=== PATIENT | female | born 1950 | race African-American/Black ===

== ENCOUNTER 2017-09-10 13:29 | Inpatient (IN) | payer MEDICAID, OTHER ==
[~2017-09-10] VITALS: Ht 170.2 cm; Wt 83.9 kg
[~2017-09-10 13:29] MED LIST: ACET-2080 PO; CLON0.2T PO; COUGH SYRUP; DIPH25CA85 PO; HYDR25TA PO; OXCA300T PO; QUET200XR PO; RISP2 PO; STOOL SOFTNER
[2017-09-10] MEDS ORDERED: HALOPERIDOL LACTATE 5 MG/ML VIAL IM ONE (16:15)
[2017-09-10] MEDS ORDERED: LORazepam 2 MG/ML VIAL IM ONE (16:15)
[2017-09-10] MEDS ORDERED: ZOLPIDEM TARTRATE 10 MG TABLET PO PRN (18:15)
[2017-09-10] MEDS ORDERED: HALOPERIDOL 5 MG TABLET PO PRN (18:15)
[2017-09-10 18:42] LABS: BASOPHILS % (AUTO) 0.6 % (0.0-2.0); EOSINOPHILS % (AUTO) 3.3 % (1.0-6.0); HEMATOCRIT 36.7 % (36-46); HEMOGLOBIN 12.3 g/dL (12.0-16.0); LYMPHOCYTES # (AUTO) 1.9 K/uL (1.0-4.8); LYMPHOCYTES % (AUTO) 36.6 % (22.0-44.0); MEAN CORPUSCULAR HEMOGLOBIN 30.3 pg (26.0-34.0); MEAN CORPUSCULAR HGB CONC 33.4 G/dL (31.0-37.0); MEAN CORPUSCULAR VOLUME 91 fL (80-100); MONOCYTES # (AUTO) 0.8 K/uL (0.1-1.0); NEUTROPHILS # (AUTO) 2.3 K/uL (1.8-7.7); NEUTROPHILS % (AUTO) 43.5 % (40.0-70.0); PLATELET COUNT (AUTO) 307 K/uL (150-450); RED BLOOD CELL COUNT(AUTO) 4.05 MIL/uL (4.00-5.20); RED CELL DISTRIBUTION WIDTH 13.9 % (11.5-14.5)
[2017-09-10 18:53] LABS: ANION GAP 12 mmol/L (8-16); CALCIUM, TOTAL 10.2 mg/dL (8.8-10.5); CARBON DIOXIDE 25 mmol/L (22-29); CHLORIDE 106 mmol/L (98-107); CREATININE 0.86 mg/dL (0.60-1.30); GLOMERULAR FILTR. RATE CALC > 60 mL/min (>60); GLUCOSE,RANDOM 78 mg/dL (70-110); POTASSIUM 3.1 mmol/L (3.5-5.1); SODIUM SERUM 143 mmol/L (136-145); UREA NITROGEN, BLOOD 26 mg/dL (7-18)
[2017-09-10 18:59] LABS: ALANINE AMINOTRANSFERASE 36 U/L (12-78); ALBUMIN 3.4 g/dL (3.4-5.0); ALKALINE PHOSPHATASE 80 U/L (46-116); ASPARTATE AMINOTRANSFERASE 47 U/L (15-37); BILIRUBIN,TOTAL 0.6 mg/dL (0.1-1.0); TOTAL PROTEIN, SERUM 6.9 g/dL (6.4-8.2)
[2017-09-10] MEDS ORDERED: POTASSIUM CHLORIDE 20 MEQ ER TABLET PO ONE (19:15)
[2017-09-10] MEDS ORDERED: LOPERAMIDE HCL 2 MG CAPSULE PO PRN (21:30)
[2017-09-10] MEDS ORDERED: ONDANSETRON HCL 4 MG TABLET PO PRN (21:30)
[2017-09-10] MEDS ORDERED: ALBUTEROL SULFATE HFA 90 MCG/PUFF 8 GM INHALER IH PRN (21:30)
[2017-09-10] MEDS ORDERED: PETROLATUM,WHITE 71 GM JELLY TP PRN (21:30)
[2017-09-10] MEDS ORDERED: DOCUSATE SODIUM 100 MG CAPSULE PO PRN (21:30)
[2017-09-10] MEDS ORDERED: MAG HYDROX/AL HYDROX/SIMETH ES 30 ML SUSPENSION UDCUP PO PRN (21:30)
[2017-09-10] MEDS ORDERED: MAGNESIUM HYDROXIDE SUSPENSION 30 ML UDCUP PO PRN (21:30)
[2017-09-11] MEDS: CloNIDine HCL 0.2 MG TABLET PO SCH (08:25)
[2017-09-11] MEDS: NICOTINE 14 MG/24 HOUR PATCH TD SCH (08:25)
[2017-09-11] MEDS: HYDROCHLOROTHIAZIDE 25 MG TABLET PO SCH ×2 (08:25→16:03)
[2017-09-11 08:28] VITALS: BP 159/102
[2017-09-11 13:00] VITALS: BP 114/59
[2017-09-11] MEDS: IBUPROFEN 400 MG TABLET PO PRN (13:00)
[2017-09-11] MEDS: QUEtiapine FUMARATE 200 MG ER TABLET PO SCH (13:00)
[2017-09-11] MEDS: OXcarbazepine 300 MG TABLET PO SCH (16:03)
[2017-09-11 16:25] VITALS: BP 131/77
[2017-09-11] MEDS: RisperiDONE 2 MG TABLET PO SCH (20:12)
[2017-09-12] MEDS: IBUPROFEN 400 MG TABLET PO PRN (05:37)
[2017-09-12 05:40] VITALS: BP 132/84
[2017-09-12 08:50] VITALS: BP 143/87
[2017-09-12] MEDS: QUEtiapine FUMARATE 200 MG ER TABLET PO SCH (09:03)
[2017-09-12] MEDS: HYDROCHLOROTHIAZIDE 25 MG TABLET PO SCH ×2 (09:04→16:26)
[2017-09-12] MEDS: OXcarbazepine 300 MG TABLET PO SCH ×2 (09:04→16:26)
[2017-09-12] MEDS: NICOTINE 14 MG/24 HOUR PATCH TD SCH (09:08)
[2017-09-12] MEDS: CloNIDine HCL 0.2 MG TABLET PO SCH (09:11)
[2017-09-12 16:33] VITALS: BP 139/72
[2017-09-12] MEDS: RisperiDONE 2 MG TABLET PO SCH (20:42)
[2017-09-13] MEDS: ACETAMINOPHEN 325 MG TABLET PO PRN (00:11)
[2017-09-13 00:17] VITALS: BP 138/89
[2017-09-13] MEDS: LORazepam 2 MG TABLET PO PRN ×2 (03:24→20:36)
[2017-09-13] MEDS: IBUPROFEN 400 MG TABLET PO PRN ×2 (03:24→19:22)
[2017-09-13] MEDS: QUEtiapine FUMARATE 200 MG ER TABLET PO SCH (08:32)
[2017-09-13] MEDS: HYDROCHLOROTHIAZIDE 25 MG TABLET PO SCH ×2 (08:32→16:28)
[2017-09-13] MEDS: CloNIDine HCL 0.2 MG TABLET PO SCH (08:32)
[2017-09-13] MEDS: OXcarbazepine 300 MG TABLET PO SCH ×2 (08:32→16:28)
[2017-09-13] MEDS: NICOTINE 14 MG/24 HOUR PATCH TD SCH (08:33)
[2017-09-13 08:45] LABS: HEMOGLOBIN A1C 5.8 % (4.5-6.2)
[2017-09-13 08:56] VITALS: BP 166/85
[2017-09-13 09:15] LABS: ANION GAP 11 mmol/L (8-16); CALCIUM, TOTAL 9.9 mg/dL (8.8-10.5); CARBON DIOXIDE 25 mmol/L (22-29); CHLORIDE 102 mmol/L (98-107); CHOL/HDL RATIO 3.5 (3.9-5.7); CHOLESTEROL 171 mg/dL (131-200); GLOMERULAR FILTR. RATE CALC > 60 mL/min (>60); GLUCOSE,RANDOM 75 mg/dL (70-110); HDL CHOLESTEROL 49 mg/dL (40-60); LDL CHOL (CALC.) 107 mg/dL (0-130); POTASSIUM 3.5 mmol/L (3.5-5.1); SODIUM SERUM 138 mmol/L (136-145); THYROID STIMULATING HORMONE 1.54 uIU/mL (0.36-3.74); TRIGLYCERIDES 75 mg/dL (15-150); UREA NITROGEN, BLOOD 19 mg/dL (7-18)
[2017-09-13 09:26] VITALS: BP 138/78
[2017-09-13 16:00] VITALS: BP 142/84
[2017-09-13 19:22] VITALS: BP 148/76
[2017-09-13] MEDS ORDERED: DICLOFENAC SODIUM 1% 100 GM GEL [4GM] TP PRN (20:00)
[2017-09-13] MEDS: RisperiDONE 2 MG TABLET PO SCH (20:28)
[2017-09-14 04:10] VITALS: BP 125/73
[2017-09-14] MEDS: IBUPROFEN 400 MG TABLET PO PRN (04:14)
[2017-09-14] MEDS: NICOTINE 14 MG/24 HOUR PATCH TD SCH (08:27)
[2017-09-14] MEDS: CloNIDine HCL 0.2 MG TABLET PO SCH (08:27)
[2017-09-14] MEDS: OXcarbazepine 300 MG TABLET PO SCH ×2 (08:27→17:07)
[2017-09-14] MEDS: HYDROCHLOROTHIAZIDE 25 MG TABLET PO SCH ×2 (08:27→17:07)
[2017-09-14] MEDS: QUEtiapine FUMARATE 200 MG ER TABLET PO SCH (08:27)
[2017-09-14 16:00] VITALS: BP 131/85
[2017-09-14] MEDS: RisperiDONE 2 MG TABLET PO SCH (20:41)
[2017-09-15 00:18] VITALS: BP 139/75
[2017-09-15] MEDS: ACETAMINOPHEN 325 MG TABLET PO PRN (00:18)
[2017-09-15 08:11] VITALS: BP 140/83
[2017-09-15] MEDS: NICOTINE 14 MG/24 HOUR PATCH TD SCH (09:00)
[2017-09-15] MEDS: OXcarbazepine 300 MG TABLET PO SCH ×2 (09:18→16:10)
[2017-09-15] MEDS: QUEtiapine FUMARATE 200 MG ER TABLET PO SCH (09:18)
[2017-09-15] MEDS: CloNIDine HCL 0.2 MG TABLET PO SCH (09:19)
[2017-09-15] MEDS: HYDROCHLOROTHIAZIDE 25 MG TABLET PO SCH ×2 (09:19→16:10)
[2017-09-15] MEDS: IBUPROFEN 400 MG TABLET PO PRN (10:31)
[2017-09-15 16:10] VITALS: BP 133/65
== END 2017-09-15 18:35 | disposition home or self-care (01) | DRG 750 ==
LOC: EMS 13:33 → B3A 18:46
PROVIDERS: ADMIT Psychiatry & Neurology Child & Adolescent Psychiatry; ATTEND Psychiatry & Neurology Child & Adolescent Psychiatry
DX: F25.0 Schizoaffective disorder, bipolar type (principal); M32.9 Systemic lupus erythematosus, unspecified; G40.909 Epilepsy, unspecified, not intractable, without status epilepticus; I10 Essential (primary) hypertension; E78.5 Hyperlipidemia, unspecified; E78.00 Pure hypercholesterolemia, unspecified; E87.6 Hypokalemia; F17.200 Nicotine dependence, unspecified, uncomplicated; I25.2 Old myocardial infarction; K59.00 Constipation, unspecified; M17.10 Unilateral primary osteoarthritis, unspecified knee; I73.00 Raynaud's syndrome without gangrene; Z71.6 Tobacco abuse counseling
CPT/HCPCS: 83036; 84443; 99285; G0480; J1630; J2060

== ENCOUNTER 2018-09-20 11:34 | Inpatient (IN) | payer OTHER ==
[~2018-09-20] VITALS: Ht 162.6 cm; Wt 87.1 kg
[~2018-09-20 11:34] MED LIST changes: -ACET-2080 PO; -COUGH SYRUP; -DIPH25CA85 PO; -OXCA300T PO; +OXCA300T28 PO; +QUET200T5 PO; -QUET200XR PO; -STOOL SOFTNER
[2018-09-20 16:13] LABS: AMPHET/METH SCREEN,URINE NEGATIVE (NEGATIVE); BARBITURATE SCREEN, URINE NEGATIVE (NEGATIVE); BENZODIAZEPINES SCREEN,URINE NEGATIVE (NEGATIVE); CANNABINOID SCREEN,URINE NEGATIVE (NEGATIVE); COCAINE SCREEN,URINE POSITIVE (NEGATIVE); METHADONE SCREEN, URINE NEGATIVE (NEGATIVE); OPIATE SCREEN,URINE NEGATIVE (NEGATIVE)
[2018-09-20 16:14] LABS: PHENCYCLIDINE SCREEN,URINE NEGATIVE (NEGATIVE)
[2018-09-20] MEDS ORDERED: ZOLPIDEM TARTRATE 10 MG TABLET PO PRN (16:30)
[2018-09-20] MEDS ORDERED: NAPROXEN 250 MG TABLET PO ONE (19:30)
[2018-09-20] MEDS ORDERED: IBUPROFEN 600 MG TABLET PO ONE (19:30)
[2018-09-20] MEDS: HALOPERIDOL 5 MG TABLET PO PRN (19:34)
[2018-09-20] MEDS: LORazepam 2 MG TABLET PO PRN (19:34)
[2018-09-20] MEDS ORDERED: GuaiFENesin/D-METHORPHAN [SUGAR-FREE] 200-20MG/10 ML SYRUP UDCUP PO PRN (22:15)
[2018-09-20] MEDS ORDERED: CloNIDine HCL 0.1 MG TABLET PO PRN (22:15)
[2018-09-20] MEDS ORDERED: DOCUSATE SODIUM 100 MG CAPSULE PO PRN (22:15)
[2018-09-20] MEDS ORDERED: ALBUTEROL SULFATE HFA 90 MCG/PUFF 8 GM INHALER IH PRN (22:15)
[2018-09-20] MEDS ORDERED: MAG HYDROX/AL HYDROX/SIMETH ES 30 ML SUSPENSION UDCUP PO PRN (22:15)
[2018-09-20] MEDS ORDERED: PETROLATUM,WHITE 28 GM JELLY TP PRN (22:15)
[2018-09-20] MEDS ORDERED: MAGNESIUM HYDROXIDE SUSPENSION 30 ML UDCUP PO PRN (22:15)
[2018-09-20] MEDS ORDERED: ONDANSETRON HCL 4 MG TABLET PO PRN (22:15)
[2018-09-21] MEDS: HYDROCHLOROTHIAZIDE 25 MG TABLET PO SCH ×2 (08:16→16:13)
[2018-09-21] MEDS: CloNIDine HCL 0.2 MG TABLET PO SCH (08:37)
[2018-09-21] MEDS: HALOPERIDOL 5 MG TABLET PO PRN (08:39)
[2018-09-21] MEDS: LORazepam 2 MG TABLET PO PRN (08:39)
[2018-09-21 14:20] VITALS: BP 118/64
[2018-09-21] MEDS: OXcarbazepine 300 MG TABLET PO SCH (16:13)
[2018-09-21 17:03] VITALS: BP 137/78
[2018-09-21 22:31] VITALS: BP 124/62
[2018-09-21] MEDS: IBUPROFEN 400 MG TABLET PO PRN (22:31)
[2018-09-22 08:00] VITALS: BP 146/83
[2018-09-22] MEDS: HYDROCHLOROTHIAZIDE 25 MG TABLET PO SCH ×2 (08:58→16:18)
[2018-09-22] MEDS: CloNIDine HCL 0.2 MG TABLET PO SCH (08:58)
[2018-09-22] MEDS: OXcarbazepine 300 MG TABLET PO SCH ×2 (08:58→16:18)
[2018-09-22] MEDS: IBUPROFEN 400 MG TABLET PO PRN (16:18)
[2018-09-22 16:19] VITALS: BP 137/82
[2018-09-22] MEDS: LURASIDONE HCL 40 MG TABLET PO SCH (17:51)
[2018-09-23 02:50] VITALS: BP 149/95
[2018-09-23] MEDS: IBUPROFEN 400 MG TABLET PO PRN (02:54)
[2018-09-23] MEDS: LURASIDONE HCL 40 MG TABLET PO SCH (07:15)
[2018-09-23 08:30] VITALS: BP 148/90
[2018-09-23] MEDS: OXcarbazepine 300 MG TABLET PO SCH ×2 (09:24→17:12)
[2018-09-23] MEDS: CloNIDine HCL 0.2 MG TABLET PO SCH (09:24)
[2018-09-23] MEDS: HYDROCHLOROTHIAZIDE 25 MG TABLET PO SCH ×2 (09:25→17:12)
[2018-09-23 17:00] VITALS: BP 124/74
[2018-09-24 02:15] VITALS: BP 141/80
[2018-09-24] MEDS: LORazepam 2 MG TABLET PO PRN (02:20)
[2018-09-24] MEDS: IBUPROFEN 400 MG TABLET PO PRN ×3 (02:20→20:44)
[2018-09-24] MEDS: LURASIDONE HCL 40 MG TABLET PO SCH (07:07)
[2018-09-24 09:00] VITALS: BP 142/79
[2018-09-24] MEDS: OXcarbazepine 300 MG TABLET PO SCH ×2 (09:42→16:27)
[2018-09-24] MEDS: HYDROCHLOROTHIAZIDE 25 MG TABLET PO SCH ×2 (09:42→16:27)
[2018-09-24] MEDS: CloNIDine HCL 0.2 MG TABLET PO SCH (09:42)
[2018-09-24 16:33] VITALS: BP 145/92
[2018-09-24] MEDS: ACETAMINOPHEN 325 MG TABLET PO PRN (16:33)
[2018-09-24 20:44] VITALS: BP 141/84
[2018-09-24] MEDS: LOPERAMIDE HCL 2 MG CAPSULE PO PRN (20:44)
[2018-09-25 00:40] VITALS: BP 168/105
[2018-09-25 01:40] VITALS: BP 145/76
[2018-09-25] MEDS: LURASIDONE HCL 40 MG TABLET PO SCH (06:58)
[2018-09-25] MEDS: OXcarbazepine 300 MG TABLET PO SCH ×2 (08:39→17:07)
[2018-09-25] MEDS: CloNIDine HCL 0.2 MG TABLET PO SCH (08:39)
[2018-09-25] MEDS: HYDROCHLOROTHIAZIDE 25 MG TABLET PO SCH ×2 (08:39→17:07)
[2018-09-25 09:28] VITALS: BP 136/91
[2018-09-25] MEDS: DICLOFENAC SODIUM 1% 100 GM GEL [2GM] TP PRN (17:11)
[2018-09-25 18:00] VITALS: BP 136/91
[2018-09-25 18:11] VITALS: BP 132/8
[2018-09-25] MEDS: IBUPROFEN 400 MG TABLET PO PRN (18:11)
[2018-09-26 00:08] VITALS: BP 152/92
[2018-09-26] MEDS: ACETAMINOPHEN 325 MG TABLET PO PRN (00:11)
[2018-09-26] MEDS: DICLOFENAC SODIUM 1% 100 GM GEL [2GM] TP PRN ×2 (00:12→07:13)
[2018-09-26 04:05] VITALS: BP 143/97
[2018-09-26] MEDS: LURASIDONE HCL 40 MG TABLET PO SCH (07:13)
[2018-09-26 08:16] VITALS: BP 102/83
[2018-09-26] MEDS: CloNIDine HCL 0.2 MG TABLET PO SCH (08:16)
[2018-09-26] MEDS: IBUPROFEN 400 MG TABLET PO PRN (08:16)
[2018-09-26] MEDS: OXcarbazepine 300 MG TABLET PO SCH ×2 (08:16→16:28)
[2018-09-26] MEDS: HYDROCHLOROTHIAZIDE 25 MG TABLET PO SCH ×2 (08:16→16:28)
[2018-09-26 09:16] VITALS: BP 111/66
[2018-09-26 17:47] VITALS: BP 156/99
[2018-09-27] MEDS: DICLOFENAC SODIUM 1% 100 GM GEL [2GM] TP PRN ×2 (01:11→08:54)
[2018-09-27 01:12] VITALS: BP 130/97
[2018-09-27] MEDS: IBUPROFEN 400 MG TABLET PO PRN (01:12)
[2018-09-27] MEDS: LURASIDONE HCL 40 MG TABLET PO SCH (07:02)
[2018-09-27 08:00] VITALS: BP 154/92
[2018-09-27] MEDS: CloNIDine HCL 0.2 MG TABLET PO SCH (08:46)
[2018-09-27] MEDS: OXcarbazepine 300 MG TABLET PO SCH ×2 (08:46→16:57)
[2018-09-27] MEDS: HYDROCHLOROTHIAZIDE 25 MG TABLET PO SCH ×2 (08:46→16:57)
[2018-09-27] MEDS: LOPERAMIDE HCL 2 MG CAPSULE PO PRN (08:55)
[2018-09-27 17:00] VITALS: BP 123/57
[2018-09-28 01:05] VITALS: BP 160/104
[2018-09-28 01:20] VITALS: BP 160/104
[2018-09-28] MEDS: IBUPROFEN 400 MG TABLET PO PRN ×2 (01:53→10:42)
[2018-09-28 01:56] VITALS: BP 130/89
[2018-09-28] MEDS: DICLOFENAC SODIUM 1% 100 GM GEL [2GM] TP PRN ×2 (05:14→21:02)
[2018-09-28] MEDS: LURASIDONE HCL 40 MG TABLET PO SCH (07:05)
[2018-09-28 10:39] VITALS: BP 152/79
[2018-09-28] MEDS: OXcarbazepine 300 MG TABLET PO SCH ×2 (10:42→16:23)
[2018-09-28] MEDS: CloNIDine HCL 0.2 MG TABLET PO SCH (10:42)
[2018-09-28] MEDS: HYDROCHLOROTHIAZIDE 25 MG TABLET PO SCH ×2 (10:42→16:23)
[2018-09-28] MEDS: NICOTINE 14 MG/24 HOUR PATCH TD PRN (15:24)
[2018-09-28 20:08] VITALS: BP 148/83
[2018-09-28] MEDS: LOPERAMIDE HCL 2 MG CAPSULE PO PRN (21:02)
[2018-09-29 01:50] VITALS: BP 150/97
[2018-09-29] MEDS: DICLOFENAC SODIUM 1% 100 GM GEL [2GM] TP PRN (01:59)
[2018-09-29] MEDS: IBUPROFEN 400 MG TABLET PO PRN (02:00)
[2018-09-29] MEDS: LURASIDONE HCL 40 MG TABLET PO SCH (06:48)
[2018-09-29 08:00] VITALS: BP 155/89
[2018-09-29] MEDS: HYDROCHLOROTHIAZIDE 25 MG TABLET PO SCH (08:16)
[2018-09-29] MEDS: CloNIDine HCL 0.2 MG TABLET PO SCH (08:16)
[2018-09-29] MEDS: NICOTINE 14 MG/24 HOUR PATCH TD PRN (08:16)
[2018-09-29] MEDS: OXcarbazepine 300 MG TABLET PO SCH (08:17)
[2018-09-29] MEDS ORDERED: CLON.2 PO (15:31)
[2018-09-29] MEDS ORDERED: HYDR25TA PO (15:31)
[2018-09-29] MEDS ORDERED: LURA40 PO (15:39)
[2018-09-29] MEDS ORDERED: OXCA300T29 PO (15:40)
== END 2018-09-29 16:45 | disposition home or self-care (01) | DRG 885 ==
LOC: EMS 11:34 → 3EX 09-21 12:21
PROVIDERS: ADMIT Psychiatry & Neurology Child & Adolescent Psychiatry; ATTEND Psychiatry & Neurology Child & Adolescent Psychiatry
DX: F20.0 Paranoid schizophrenia (principal); R45.851 Suicidal ideations; Z88.0 Allergy status to penicillin; F14.10 Cocaine abuse, uncomplicated; E78.00 Pure hypercholesterolemia, unspecified; E78.5 Hyperlipidemia, unspecified; F10.10 Alcohol abuse, uncomplicated; F17.200 Nicotine dependence, unspecified, uncomplicated; F32.9 Major depressive disorder, single episode, unspecified; G40.909 Epilepsy, unspecified, not intractable, without status epilepticus; G89.29 Other chronic pain; I10 Essential (primary) hypertension; I25.10 Atherosclerotic heart disease of native coronary artery without angina pectoris; I25.2 Old myocardial infarction; I73.00 Raynaud's syndrome without gangrene; M06.9 Rheumatoid arthritis, unspecified; M32.9 Systemic lupus erythematosus, unspecified
CPT/HCPCS: G0378

== ENCOUNTER 2018-10-16 15:15 | Inpatient (IN) | payer OTHER, MEDICAID ==
[~2018-10-16] VITALS: Ht 170.2 cm; Wt 86.3 kg
[~2018-10-16 15:15] MED LIST changes: +ASCO500 PO; +DIVA-78 PO; +LEVO250 PO; +LURA40 PO; -OXCA300T28 PO; +OXCA300T46 PO; -RISP2 PO
[2018-10-16 17:18] VITALS: BP 127/66
[2018-10-16] MEDS ORDERED: ACETAMINOPHEN 325 MG TABLET PO PRN (17:30)
[2018-10-16] MEDS ORDERED: LOPERAMIDE HCL 2 MG CAPSULE PO PRN (17:30)
[2018-10-16] MEDS ORDERED: GuaiFENesin/D-METHORPHAN [SUGAR-FREE] 200-20MG/10 ML SYRUP UDCUP PO PRN (17:30)
[2018-10-16] MEDS ORDERED: DOCUSATE SODIUM 100 MG CAPSULE PO PRN (17:30)
[2018-10-16] MEDS ORDERED: ONDANSETRON HCL 4 MG TABLET PO PRN (17:30)
[2018-10-16] MEDS ORDERED: NICOTINE 14 MG/24 HOUR PATCH TD PRN (17:30)
[2018-10-16] MEDS ORDERED: ALBUTEROL SULFATE HFA 90 MCG/PUFF 8 GM INHALER IH PRN (17:30)
[2018-10-16] MEDS ORDERED: MAGNESIUM HYDROXIDE SUSPENSION 30 ML UDCUP PO PRN (17:30)
[2018-10-16] MEDS ORDERED: MAG HYDROX/AL HYDROX/SIMETH ES 30 ML SUSPENSION UDCUP PO PRN (17:30)
[2018-10-16] MEDS ORDERED: PETROLATUM,WHITE 28 GM JELLY TP PRN (17:30)
[2018-10-16] MEDS ORDERED: CloNIDine HCL 0.1 MG TABLET PO PRN (17:30)
[2018-10-16] MEDS ORDERED: LORazepam 2 MG TABLET PO PRN (17:45)
[2018-10-16] MEDS ORDERED: HALOPERIDOL 5 MG TABLET PO PRN (17:45)
[2018-10-16] MEDS: HYDROCHLOROTHIAZIDE 25 MG TABLET PO SCH ×3 (18:21→21:46)
[2018-10-16] MEDS: LURASIDONE HCL 80 MG TABLET PO SCH (21:43)
[2018-10-16] MEDS: DIVALPROEX SODIUM 500 MG DR TABLET PO SCH (21:43)
[2018-10-16] MEDS: ZOLPIDEM TARTRATE 10 MG TABLET PO PRN (21:45)
[2018-10-17 03:55] VITALS: BP 149/83
[2018-10-17] MEDS: HYDROCHLOROTHIAZIDE 25 MG TABLET PO SCH ×2 (09:18→16:20)
[2018-10-17] MEDS: ASCORBIC ACID 500 MG TABLET PO SCH (09:20)
[2018-10-17] MEDS: LEVOFLOXACIN 250 MG TABLET PO SCH (09:21)
[2018-10-17] MEDS: DIVALPROEX SODIUM 500 MG DR TABLET PO SCH ×3 (09:21→20:52)
[2018-10-17] MEDS: PANTOPRAZOLE SODIUM 40 MG DR TABLET PO SCH (09:22)
[2018-10-17] MEDS: QUEtiapine FUMARATE 200 MG TABLET PO SCH (09:22)
[2018-10-17 09:25] VITALS: BP 158/91
[2018-10-17] MEDS: IBUPROFEN 400 MG TABLET PO PRN (09:28)
[2018-10-17] MEDS: NICOTINE 14 MG/24 HOUR PATCH TD SCH (09:29)
[2018-10-17] MEDS: DICLOFENAC SODIUM 1% 100 GM GEL [4GM] TP SCH ×2 (13:07→16:20)
[2018-10-17 18:06] VITALS: BP 152/92
[2018-10-17] MEDS: ZOLPIDEM TARTRATE 10 MG TABLET PO PRN (20:52)
[2018-10-17] MEDS: LURASIDONE HCL 80 MG TABLET PO SCH (20:52)
[2018-10-18 05:40] VITALS: BP 147/92
[2018-10-18] MEDS: IBUPROFEN 400 MG TABLET PO PRN (06:00)
[2018-10-18] MEDS: LEVOFLOXACIN 250 MG TABLET PO SCH (08:44)
[2018-10-18] MEDS: HYDROCHLOROTHIAZIDE 25 MG TABLET PO SCH ×2 (08:44→17:42)
[2018-10-18] MEDS: DICLOFENAC SODIUM 1% 100 GM GEL [4GM] TP SCH ×3 (08:44→17:42)
[2018-10-18] MEDS: ASCORBIC ACID 500 MG TABLET PO SCH (08:44)
[2018-10-18] MEDS: DIVALPROEX SODIUM 500 MG DR TABLET PO SCH ×3 (08:46→20:23)
[2018-10-18] MEDS: NICOTINE 14 MG/24 HOUR PATCH TD SCH (08:46)
[2018-10-18] MEDS: QUEtiapine FUMARATE 200 MG TABLET PO SCH (08:46)
[2018-10-18] MEDS: PANTOPRAZOLE SODIUM 40 MG DR TABLET PO SCH (08:46)
[2018-10-18] MEDS: MULTIVITAMINS WITH MINERALS, THERAPEUTIC TABLET PO SCH (08:46)
[2018-10-18 09:45] VITALS: BP 145/96
[2018-10-18 17:00] VITALS: BP 111/75
[2018-10-18] MEDS: LURASIDONE HCL 80 MG TABLET PO SCH (20:23)
[2018-10-19] MEDS: QUEtiapine FUMARATE 200 MG TABLET PO SCH (08:43)
[2018-10-19] MEDS: DIVALPROEX SODIUM 500 MG DR TABLET PO SCH ×3 (08:43→20:49)
[2018-10-19] MEDS: LEVOFLOXACIN 250 MG TABLET PO SCH (08:43)
[2018-10-19] MEDS: MULTIVITAMINS WITH MINERALS, THERAPEUTIC TABLET PO SCH (08:43)
[2018-10-19] MEDS: HYDROCHLOROTHIAZIDE 25 MG TABLET PO SCH ×2 (08:44→17:01)
[2018-10-19] MEDS: ASCORBIC ACID 500 MG TABLET PO SCH (08:44)
[2018-10-19] MEDS: NICOTINE 14 MG/24 HOUR PATCH TD SCH (08:46)
[2018-10-19] MEDS: DICLOFENAC SODIUM 1% 100 GM GEL [4GM] TP SCH ×3 (08:47→17:01)
[2018-10-19] MEDS: PANTOPRAZOLE SODIUM 40 MG DR TABLET PO SCH (08:50)
[2018-10-19 09:22] VITALS: BP 153/92
[2018-10-19 16:25] VITALS: BP 125/88
[2018-10-19] MEDS: LURASIDONE HCL 80 MG TABLET PO SCH (20:46)
[2018-10-20 06:00] VITALS: BP 142/95
[2018-10-20] MEDS: MULTIVITAMINS WITH MINERALS, THERAPEUTIC TABLET PO SCH (08:51)
[2018-10-20] MEDS: DICLOFENAC SODIUM 1% 100 GM GEL [4GM] TP SCH ×3 (08:51→17:10)
[2018-10-20] MEDS: DIVALPROEX SODIUM 500 MG DR TABLET PO SCH ×3 (08:52→20:55)
[2018-10-20] MEDS: PANTOPRAZOLE SODIUM 40 MG DR TABLET PO SCH (08:52)
[2018-10-20] MEDS: HYDROCHLOROTHIAZIDE 25 MG TABLET PO SCH ×2 (08:52→17:10)
[2018-10-20] MEDS: QUEtiapine FUMARATE 200 MG TABLET PO SCH (08:52)
[2018-10-20] MEDS: LEVOFLOXACIN 250 MG TABLET PO SCH (08:52)
[2018-10-20] MEDS: ASCORBIC ACID 500 MG TABLET PO SCH (08:52)
[2018-10-20] MEDS: NICOTINE 14 MG/24 HOUR PATCH TD SCH (08:53)
[2018-10-20 09:30] VITALS: BP 134/86
[2018-10-20 16:17] VITALS: BP 117/67
[2018-10-20] MEDS: LURASIDONE HCL 80 MG TABLET PO SCH (20:55)
[2018-10-21 08:30] VITALS: BP 139/84
[2018-10-21] MEDS: MULTIVITAMINS WITH MINERALS, THERAPEUTIC TABLET PO SCH (08:39)
[2018-10-21] MEDS: DIVALPROEX SODIUM 500 MG DR TABLET PO SCH ×3 (08:39→20:31)
[2018-10-21] MEDS: LEVOFLOXACIN 250 MG TABLET PO SCH (08:39)
[2018-10-21] MEDS: PANTOPRAZOLE SODIUM 40 MG DR TABLET PO SCH (08:39)
[2018-10-21] MEDS: ASCORBIC ACID 500 MG TABLET PO SCH (08:40)
[2018-10-21] MEDS: DICLOFENAC SODIUM 1% 100 GM GEL [4GM] TP SCH ×3 (08:40→16:53)
[2018-10-21] MEDS: QUEtiapine FUMARATE 200 MG TABLET PO SCH (08:40)
[2018-10-21] MEDS: HYDROCHLOROTHIAZIDE 25 MG TABLET PO SCH ×2 (08:40→16:53)
[2018-10-21] MEDS: NICOTINE 14 MG/24 HOUR PATCH TD SCH (08:45)
[2018-10-21 17:00] VITALS: BP 150/80
[2018-10-21] MEDS: LURASIDONE HCL 80 MG TABLET PO SCH (20:31)
[2018-10-22] MEDS: NICOTINE 14 MG/24 HOUR PATCH TD SCH (09:32)
[2018-10-22] MEDS: DICLOFENAC SODIUM 1% 100 GM GEL [4GM] TP SCH ×3 (09:32→16:55)
[2018-10-22] MEDS: QUEtiapine FUMARATE 200 MG TABLET PO SCH (09:33)
[2018-10-22] MEDS: DIVALPROEX SODIUM 500 MG DR TABLET PO SCH ×3 (09:33→20:32)
[2018-10-22] MEDS: PANTOPRAZOLE SODIUM 40 MG DR TABLET PO SCH (09:33)
[2018-10-22] MEDS: MULTIVITAMINS WITH MINERALS, THERAPEUTIC TABLET PO SCH (09:33)
[2018-10-22] MEDS: HYDROCHLOROTHIAZIDE 25 MG TABLET PO SCH ×2 (09:33→16:54)
[2018-10-22] MEDS: LEVOFLOXACIN 250 MG TABLET PO SCH (09:33)
[2018-10-22] MEDS: ASCORBIC ACID 500 MG TABLET PO SCH (09:33)
[2018-10-22 09:55] VITALS: BP 137/87
[2018-10-22] MEDS: LURASIDONE HCL 80 MG TABLET PO SCH (20:32)
[2018-10-22 22:48] VITALS: BP 141/64
[2018-10-23 08:41] VITALS: BP 124/68
[2018-10-23] MEDS: ASCORBIC ACID 500 MG TABLET PO SCH (09:48)
[2018-10-23] MEDS: DIVALPROEX SODIUM 500 MG DR TABLET PO SCH (09:48)
[2018-10-23] MEDS: HYDROCHLOROTHIAZIDE 25 MG TABLET PO SCH (09:49)
[2018-10-23] MEDS: MULTIVITAMINS WITH MINERALS, THERAPEUTIC TABLET PO SCH (09:49)
[2018-10-23] MEDS: QUEtiapine FUMARATE 200 MG TABLET PO SCH (09:49)
[2018-10-23] MEDS: PANTOPRAZOLE SODIUM 40 MG DR TABLET PO SCH (09:50)
[2018-10-23] MEDS: LEVOFLOXACIN 250 MG TABLET PO SCH (09:50)
[2018-10-23] MEDS: NICOTINE 14 MG/24 HOUR PATCH TD SCH (09:52)
[2018-10-23] MEDS: DICLOFENAC SODIUM 1% 100 GM GEL [4GM] TP SCH (09:54)
[2018-10-23] MEDS ORDERED: QUET200T PO (11:25)
[2018-10-23] MEDS ORDERED: MULT-1239 PO (11:27)
[2018-10-23] MEDS ORDERED: PANT40TA25 PO (11:28)
== END 2018-10-23 12:00 | disposition home or self-care (01) | DRG 885 ==
LOC: 3EX 15:15
PROVIDERS: ADMIT Psychiatry & Neurology Psychiatry; ATTEND Psychiatry & Neurology Psychiatry
DX: F20.0 Paranoid schizophrenia (principal); R45.851 Suicidal ideations; D64.9 Anemia, unspecified; E78.5 Hyperlipidemia, unspecified; F41.1 Generalized anxiety disorder; G40.909 Epilepsy, unspecified, not intractable, without status epilepticus; I10 Essential (primary) hypertension; I73.00 Raynaud's syndrome without gangrene; M06.9 Rheumatoid arthritis, unspecified; Z91.5 Personal history of self-harm; Z79.899 Other long term (current) drug therapy
CPT/HCPCS: 87081; G0378

== ENCOUNTER 2018-10-26 16:56 | Emergency (ER) | payer OTHER ==
[~2018-10-26] VITALS: Ht 165.1 cm; Wt 75.0 kg
[~2018-10-26 16:56] MED LIST changes: -CLON0.2T PO; -LEVO250 PO; +MULT-1239 PO; -OXCA300T46 PO; +PANT40TA25 PO; +QUET200T PO; -QUET200T5 PO
[2018-10-26] MEDS ORDERED: IBUPROFEN 600 MG TABLET PO ONE (18:00)
[2018-10-26] MEDS ORDERED: MORPHINE SULFATE 4 MG/ML SYRINGE IM ONE (20:00)
[2018-10-26] MEDS ORDERED: ONDANSETRON HCL 4 MG/2 ML VIAL IM ONE (20:00)
[2018-10-26] MEDS ORDERED: HYDROCODONE/ACETAMINOPHEN 5-325 MG TABLET PO ONE (20:45)
[2018-10-26 22:35] VITALS: BP 121/77
== END 2018-10-26 22:35 | disposition home or self-care (01) ==
LOC: EMS 16:58
DX: M17.0 Bilateral primary osteoarthritis of knee (principal); E78.00 Pure hypercholesterolemia, unspecified; I10 Essential (primary) hypertension; M32.9 Systemic lupus erythematosus, unspecified; F20.9 Schizophrenia, unspecified; F11.90 Opioid use, unspecified, uncomplicated; F31.9 Bipolar disorder, unspecified; F17.210 Nicotine dependence, cigarettes, uncomplicated; Z88.0 Allergy status to penicillin; Z79.899 Other long term (current) drug therapy; Z98.890 Other specified postprocedural states
CPT/HCPCS: 73562 ×2; 99283; 99406; J2405; J2270

== ENCOUNTER 2019-05-13 16:25 | Inpatient (IN) | payer MEDICARE, MEDICAID ==
[~2019-05-13] VITALS: Ht 170.2 cm; Wt 85.1 kg
[~2019-05-13 16:25] MED LIST changes: +AMLO10TA7 PO; +ATOR20TA86 PO; +BACI30OI6 TP; +HYDR-1475 PO; +HYDR-4455 PO; +LURA80 PO; +METO50 PO; +MIRT30 PO; +OXYB5 PO; +PRED10 PO
[2019-05-13 17:38] LABS: BASOPHILS % (AUTO) 0.7 % (0.0-2.0); EOSINOPHILS % (AUTO) 1.1 % (1.0-6.0); HEMATOCRIT 39.8 % (36-46); HEMOGLOBIN 13.2 g/dL (12.0-16.0); LYMPHOCYTES # (AUTO) 1.5 K/uL (1.0-4.8); LYMPHOCYTES % (AUTO) 37.9 % (22.0-44.0); MEAN CORPUSCULAR HEMOGLOBIN 30.6 pg (26.0-34.0); MEAN CORPUSCULAR HGB CONC 33.2 G/dL (31.0-37.0); MEAN CORPUSCULAR VOLUME 92 fL (80-100); MONOCYTES # (AUTO) 0.6 K/uL (0.1-1.0); MONOCYTES % (AUTO) 14.9 % (2.0-9.0); NEUTROPHILS # (AUTO) 1.8 K/uL (1.8-7.7); NEUTROPHILS % (AUTO) 45.4 % (40.0-70.0); PLATELET COUNT (AUTO) 255 K/uL (150-450); RED BLOOD CELL COUNT(AUTO) 4.32 MIL/uL (4.00-5.20); RED CELL DISTRIBUTION WIDTH 14.2 % (11.5-14.5)
[2019-05-13] MEDS ORDERED: IBUPROFEN 400 MG TABLET PO ONE (17:45)
[2019-05-13] MEDS ORDERED: OxyCODONE HCL/ACETAMINOPHEN 5-325 MG TABLET PO ONE (17:45)
[2019-05-13 17:49] LABS: ANION GAP 9 mmol/L (8-16); CALCIUM, TOTAL 10.8 mg/dL (8.8-10.5); CARBON DIOXIDE 24 mmol/L (22-29); CHLORIDE 104 mmol/L (98-107); CREATININE 0.96 mg/dL (0.60-1.30); GLOMERULAR FILTR. RATE CALC > 60 mL/min (>60); GLUCOSE,RANDOM 82 mg/dL (70-110); SODIUM SERUM 137 mmol/L (136-145); UREA NITROGEN, BLOOD 22 mg/dL (7-18)
[2019-05-13 17:57] LABS: ALANINE AMINOTRANSFERASE 17 U/L (12-78); ALBUMIN 3.8 g/dL (3.4-5.0); ALKALINE PHOSPHATASE 97 U/L (46-116); ASPARTATE AMINOTRANSFERASE 15 U/L (15-37); BILIRUBIN,TOTAL 0.4 mg/dL (0.1-1.0); TOTAL PROTEIN, SERUM 7.2 g/dL (6.4-8.2)
[2019-05-13 18:11] LABS: B-TYPE NATRIURETIC PEPTIDE 40 pg/mL (0-100)
[2019-05-13] MEDS ORDERED: MethylPREDNISolone SOD SUCC 125 MG/2 ML VIAL IVP ONE (19:00)
[2019-05-13] MEDS ORDERED: MORPHINE SULFATE 4 MG/ML SYRINGE IVP ONE (19:00)
[2019-05-13] MEDS ORDERED: ACETAMINOPHEN 325 MG TABLET PO PRN (19:45)
[2019-05-13] MEDS ORDERED: ONDANSETRON HCL 4 MG/2 ML VIAL IVP PRN ×2 (19:45→21:30)
[2019-05-13] MEDS ORDERED: 0.9% SODIUM CHLORIDE 10 ML SYRINGE IVP PRN (19:45)
[2019-05-13] MEDS ORDERED: ZOLPIDEM TARTRATE 5 MG TABLET PO PRN (21:30)
[2019-05-13] MEDS ORDERED: BISACODYL 10 MG RECTAL RECTAL SUPPOSITORY PR PRN (21:30)
[2019-05-13] MEDS ORDERED: MAGNESIUM HYDROXIDE SUSPENSION 30 ML UDCUP PO PRN (21:30)
[2019-05-13] MEDS ORDERED: HYDROmorphone 2 MG/ML SYRINGE IVP PRN (21:30)
[2019-05-13 22:56] VITALS: BP 162/95
[2019-05-14 04:40] VITALS: BP 129/85
[2019-05-14 07:51] VITALS: BP 146/80
[2019-05-14] MEDS: AmLODIPine BESYLATE 10 MG TABLET PO SCH (08:44)
[2019-05-14] MEDS: PANTOPRAZOLE SODIUM 40 MG DR TABLET PO SCH (08:44)
[2019-05-14] MEDS: METOPROLOL TARTRATE 50 MG TABLET PO SCH ×2 (08:44→20:13)
[2019-05-14] MEDS: HYDROCHLOROTHIAZIDE 25 MG TABLET PO SCH ×2 (08:44→20:13)
[2019-05-14] MEDS: DOCUSATE SODIUM 100 MG CAPSULE PO SCH ×2 (08:44→20:13)
[2019-05-14] MEDS: IBUPROFEN 400 MG TABLET PO PRN ×2 (08:45→20:43)
[2019-05-14] MEDS: QUEtiapine FUMARATE 200 MG TABLET PO SCH ×2 (08:46→20:14)
[2019-05-14 11:31] VITALS: BP 122/78
[2019-05-14] MEDS: PredniSONE 20 MG TABLET PO SCH ×2 (14:08→20:13)
[2019-05-14 15:29] VITALS: BP 143/106
[2019-05-14 19:56] VITALS: BP 133/71
[2019-05-14] MEDS: LURASIDONE HCL 80 MG TABLET PO SCH (20:14)
[2019-05-14] MEDS: ATORVASTATIN CALCIUM 20 MG TABLET PO SCH (20:14)
[2019-05-14 23:37] VITALS: BP 127/88
[2019-05-15 05:14] VITALS: BP 145/72
[2019-05-15 07:16] VITALS: BP 133/70
[2019-05-15 07:45] LABS: ANION GAP 9 mmol/L (8-16); CALCIUM, TOTAL 10.6 mg/dL (8.8-10.5); CARBON DIOXIDE 25 mmol/L (22-29); CHLORIDE 105 mmol/L (98-107); GLOMERULAR FILTR. RATE CALC > 60 mL/min (>60); GLUCOSE,RANDOM 132 mg/dL (70-110); POTASSIUM 4.3 mmol/L (3.5-5.1); SODIUM SERUM 139 mmol/L (136-145); UREA NITROGEN, BLOOD 21 mg/dL (7-18)
[2019-05-15 08:20] LABS: BASOPHILS % (AUTO) 0.2 % (0.0-2.0); EOSINOPHILS % (AUTO) 0 % (1.0-6.0); HEMATOCRIT 39.9 % (36-46); HEMOGLOBIN 13.1 g/dL (12.0-16.0); LYMPHOCYTES # (AUTO) 1.1 K/uL (1.0-4.8); LYMPHOCYTES % (AUTO) 12.3 % (22.0-44.0); MEAN CORPUSCULAR HEMOGLOBIN 30.2 pg (26.0-34.0); MEAN CORPUSCULAR HGB CONC 32.9 G/dL (31.0-37.0); MEAN CORPUSCULAR VOLUME 92 fL (80-100); MONOCYTES # (AUTO) 0.3 K/uL (0.1-1.0); MONOCYTES % (AUTO) 3.7 % (2.0-9.0); NEUTROPHILS # (AUTO) 7.2 K/uL (1.8-7.7); NEUTROPHILS % (AUTO) 83.8 % (40.0-70.0); PLATELET COUNT (AUTO) 270 K/uL (150-450); RED BLOOD CELL COUNT(AUTO) 4.34 MIL/uL (4.00-5.20); RED CELL DISTRIBUTION WIDTH 14.2 % (11.5-14.5)
[2019-05-15] MEDS: HYDROCHLOROTHIAZIDE 25 MG TABLET PO SCH ×2 (08:40→20:40)
[2019-05-15] MEDS: QUEtiapine FUMARATE 200 MG TABLET PO SCH ×2 (08:40→20:40)
[2019-05-15] MEDS: IBUPROFEN 400 MG TABLET PO PRN (08:40)
[2019-05-15] MEDS: AmLODIPine BESYLATE 10 MG TABLET PO SCH (08:41)
[2019-05-15] MEDS: DOCUSATE SODIUM 100 MG CAPSULE PO SCH ×2 (08:41→20:40)
[2019-05-15] MEDS: PANTOPRAZOLE SODIUM 40 MG DR TABLET PO SCH (08:41)
[2019-05-15] MEDS: PredniSONE 20 MG TABLET PO SCH ×2 (08:41→20:40)
[2019-05-15] MEDS: METOPROLOL TARTRATE 50 MG TABLET PO SCH ×2 (08:41→20:40)
[2019-05-15 11:20] VITALS: BP 126/79
[2019-05-15] MEDS ORDERED: DOCU-275 PO (12:40)
[2019-05-15] MEDS ORDERED: PANT40TA25 PO (12:41)
[2019-05-15] MEDS ORDERED: PRED5 PO (12:42)
[2019-05-15] MEDS ORDERED: BISA10SU11 PR (13:19)
[2019-05-15] MEDS ORDERED: ACET-3207 PO (13:19)
[2019-05-15] MEDS ORDERED: MOM30 PO (13:20)
[2019-05-15] MEDS ORDERED: IBUP-1506 PO (13:20)
[2019-05-15 15:15] VITALS: BP 124/76
[2019-05-15] MEDS: ACETAMINOPHEN 325 MG TABLET PO PRN (16:13)
[2019-05-15] MEDS: LURASIDONE HCL 80 MG TABLET PO SCH (16:13)
[2019-05-15 19:54] VITALS: BP 126/82
[2019-05-15] MEDS: ATORVASTATIN CALCIUM 20 MG TABLET PO SCH (20:40)
[2019-05-16 00:16] VITALS: BP 132/80
[2019-05-16 05:02] VITALS: BP 147/88
[2019-05-16 07:49] VITALS: BP 118/95
[2019-05-16] MEDS: PANTOPRAZOLE SODIUM 40 MG DR TABLET PO SCH (08:46)
[2019-05-16] MEDS: QUEtiapine FUMARATE 200 MG TABLET PO SCH ×2 (08:46→20:09)
[2019-05-16] MEDS: HYDROCHLOROTHIAZIDE 25 MG TABLET PO SCH ×2 (08:46→20:09)
[2019-05-16] MEDS: PredniSONE 20 MG TABLET PO SCH ×2 (08:46→20:08)
[2019-05-16] MEDS: DOCUSATE SODIUM 100 MG CAPSULE PO SCH ×2 (08:46→20:08)
[2019-05-16] MEDS: METOPROLOL TARTRATE 50 MG TABLET PO SCH ×2 (09:00→20:08)
[2019-05-16] MEDS: AmLODIPine BESYLATE 10 MG TABLET PO SCH (09:00)
[2019-05-16] MEDS: IBUPROFEN 400 MG TABLET PO PRN ×2 (09:25→20:08)
[2019-05-16 09:47] LABS: BASOPHILS % (AUTO) 0.1 % (0.0-2.0); EOSINOPHILS % (AUTO) 0 % (1.0-6.0); HEMATOCRIT 42.3 % (36-46); HEMOGLOBIN 13.9 g/dL (12.0-16.0); LYMPHOCYTES # (AUTO) 1.2 K/uL (1.0-4.8); LYMPHOCYTES % (AUTO) 13.4 % (22.0-44.0); MEAN CORPUSCULAR HEMOGLOBIN 30.2 pg (26.0-34.0); MEAN CORPUSCULAR HGB CONC 32.8 G/dL (31.0-37.0); MEAN CORPUSCULAR VOLUME 92 fL (80-100); MONOCYTES # (AUTO) 0.8 K/uL (0.1-1.0); NEUTROPHILS % (AUTO) 77.5 % (40.0-70.0); PLATELET COUNT (AUTO) 276 K/uL (150-450); RED BLOOD CELL COUNT(AUTO) 4.59 MIL/uL (4.00-5.20); RED CELL DISTRIBUTION WIDTH 14.3 % (11.5-14.5)
[2019-05-16 10:08] LABS: ANION GAP 9 mmol/L (8-16); CALCIUM, TOTAL 10.9 mg/dL (8.8-10.5); CARBON DIOXIDE 27 mmol/L (22-29); CHLORIDE 101 mmol/L (98-107); CREATININE 0.86 mg/dL (0.60-1.30); GLOMERULAR FILTR. RATE CALC > 60 mL/min (>60); GLUCOSE,RANDOM 106 mg/dL (70-110); SODIUM SERUM 137 mmol/L (136-145); UREA NITROGEN, BLOOD 19 mg/dL (7-18)
[2019-05-16 11:37] VITALS: BP 163/98
[2019-05-16 15:25] VITALS: BP 139/57
[2019-05-16] MEDS: LURASIDONE HCL 80 MG TABLET PO SCH (17:12)
[2019-05-16 19:30] VITALS: BP 153/82
[2019-05-16] MEDS: ATORVASTATIN CALCIUM 20 MG TABLET PO SCH (20:09)
[2019-05-17] VITALS (7 sets, daily range): BP systolic 123–163; BP diastolic 71–93
[2019-05-17] MEDS: DOCUSATE SODIUM 100 MG CAPSULE PO SCH ×2 (08:31→20:23)
[2019-05-17] MEDS: METOPROLOL TARTRATE 50 MG TABLET PO SCH ×2 (08:31→20:24)
[2019-05-17] MEDS: QUEtiapine FUMARATE 200 MG TABLET PO SCH ×2 (08:31→20:23)
[2019-05-17] MEDS: AmLODIPine BESYLATE 10 MG TABLET PO SCH (08:31)
[2019-05-17] MEDS: HYDROCHLOROTHIAZIDE 25 MG TABLET PO SCH ×2 (08:32→20:24)
[2019-05-17] MEDS: PredniSONE 20 MG TABLET PO SCH (08:32)
[2019-05-17] MEDS: PANTOPRAZOLE SODIUM 40 MG DR TABLET PO SCH (08:32)
[2019-05-17] MEDS: IBUPROFEN 400 MG TABLET PO PRN ×2 (11:00→20:24)
[2019-05-17] MEDS: LURASIDONE HCL 80 MG TABLET PO SCH (17:22)
[2019-05-17] MEDS: ATORVASTATIN CALCIUM 20 MG TABLET PO SCH (20:24)
[2019-05-18 04:30] VITALS: BP 137/96
[2019-05-18 07:50] VITALS: BP 118/80
[2019-05-18] MEDS: DOCUSATE SODIUM 100 MG CAPSULE PO SCH (08:09)
[2019-05-18] MEDS: QUEtiapine FUMARATE 200 MG TABLET PO SCH (08:09)
[2019-05-18] MEDS: METOPROLOL TARTRATE 50 MG TABLET PO SCH (08:09)
[2019-05-18] MEDS: PANTOPRAZOLE SODIUM 40 MG DR TABLET PO SCH (08:09)
[2019-05-18] MEDS: AmLODIPine BESYLATE 10 MG TABLET PO SCH (08:09)
[2019-05-18] MEDS: HYDROCHLOROTHIAZIDE 25 MG TABLET PO SCH (08:09)
[2019-05-18] MEDS: ACETAMINOPHEN 325 MG TABLET PO PRN (08:10)
[2019-05-18] MEDS ORDERED: PredniSONE 20 MG TABLET PO SCH (09:00)
[2019-05-18 11:24] VITALS: BP 136/77
== END 2019-05-18 12:45 | disposition home health service (06) | DRG 547 ==
LOC: EMS 16:28 → 6N 21:37
PROVIDERS: ADMIT Internal Medicine; ATTEND Internal Medicine
DX: M32.19 Other organ or system involvement in systemic lupus erythematosus (principal); F20.9 Schizophrenia, unspecified; F31.9 Bipolar disorder, unspecified; G40.909 Epilepsy, unspecified, not intractable, without status epilepticus; E78.00 Pure hypercholesterolemia, unspecified; M17.10 Unilateral primary osteoarthritis, unspecified knee; I10 Essential (primary) hypertension; E78.5 Hyperlipidemia, unspecified; I73.00 Raynaud's syndrome without gangrene; R53.81 Other malaise; F17.210 Nicotine dependence, cigarettes, uncomplicated; F14.90 Cocaine use, unspecified, uncomplicated; Z90.89 Acquired absence of other organs; Z88.0 Allergy status to penicillin; Z88.8 Allergy status to other drugs, medicaments and biological substances; Z88.5 Allergy status to narcotic agent
CPT/HCPCS: 84550; 85651; 86140; 93005; 97116; 97163; 97166; 97530; 97535; J2270; J2930

== ENCOUNTER 2019-11-17 21:56 | Emergency (ER) | payer MEDICARE, OTHER ==
[~2019-11-17] VITALS: Ht 170.2 cm; Wt 90.9 kg
[~2019-11-17 21:56] MED LIST changes: +ACET-3207 PO; +AMLO-258 PO; -AMLO10TA7 PO; -ASCO500 PO; -BACI30OI6 TP; +BISA10SU11 PR; -DIVA-78 PO; +DOCU-275 PO; -HYDR-1475 PO; -HYDR-4455 PO; -HYDR25TA PO; +IBUP-1506 PO; -LURA40 PO; -LURA80 PO; +LURA80TA2 PO; -MIRT30 PO; +MOM30 PO; -MULT-1239 PO; -OXYB5 PO; +PANT-31 PO; -PANT40TA25 PO; -PRED10 PO
[2019-11-18] MEDS ORDERED: ACETAMINOPHEN 500 MG TABLET PO ONE (01:15)
[2019-11-18 04:11] VITALS: BP 145/79
== END 2019-11-18 04:40 | disposition left against medical advice (07) ==
LOC: EMS 21:57
DX: M32.9 Systemic lupus erythematosus, unspecified (principal); F20.9 Schizophrenia, unspecified; R07.9 Chest pain, unspecified; F31.9 Bipolar disorder, unspecified; E78.00 Pure hypercholesterolemia, unspecified; I10 Essential (primary) hypertension; F17.210 Nicotine dependence, cigarettes, uncomplicated; F14.90 Cocaine use, unspecified, uncomplicated; Z20.828 Contact with and (suspected) exposure to other viral communicable diseases; Z88.8 Allergy status to other drugs, medicaments and biological substances; Z88.5 Allergy status to narcotic agent; Z88.0 Allergy status to penicillin
CPT/HCPCS: 87426; 93005; 71045-TC

== ENCOUNTER 2019-11-29 07:14 | Emergency (ER) | payer MEDICARE, OTHER ==
[~2019-11-29] VITALS: Ht 172.7 cm; Wt 77.3 kg
[2019-11-29] MEDS ORDERED: ACETAMINOPHEN 325 MG TABLET PO ONE (07:45)
[2019-11-29 08:54] LABS: BASOPHILS % (AUTO) 0.6 % (0.0-2.0); EOSINOPHILS % (AUTO) 1.4 % (1.0-6.0); HEMATOCRIT 40.3 % (36-46); HEMOGLOBIN 13.4 g/dL (12.0-16.0); LYMPHOCYTES # (AUTO) 1.7 K/uL (1.0-4.8); LYMPHOCYTES % (AUTO) 24.5 % (22.0-44.0); MEAN CORPUSCULAR HEMOGLOBIN 29.9 pg (26.0-34.0); MEAN CORPUSCULAR HGB CONC 33.3 G/dL (31.0-37.0); MEAN CORPUSCULAR VOLUME 90 fL (80-100); MONOCYTES # (AUTO) 0.5 K/uL (0.1-1.0); NEUTROPHILS # (AUTO) 4.5 K/uL (1.8-7.7); NEUTROPHILS % (AUTO) 65.5 % (40.0-70.0); PLATELET COUNT (AUTO) 403 K/uL (150-450); RED CELL DISTRIBUTION WIDTH 13.8 % (11.5-14.5)
[2019-11-29 09:08] LABS: ANION GAP 7 mmol/L (8-16); CALCIUM, TOTAL 10.5 mg/dL (8.8-10.5); CARBON DIOXIDE 27 mmol/L (22-29); CHLORIDE 109 mmol/L (98-107); CREATININE 0.88 mg/dL (0.60-1.30); GLOMERULAR FILTR. RATE CALC > 60 mL/min (>60); GLUCOSE,RANDOM 95 mg/dL (70-110); POTASSIUM 4.2 mmol/L (3.5-5.1); SODIUM SERUM 143 mmol/L (136-145); UREA NITROGEN, BLOOD 22 mg/dL (7-18)
[2019-11-29 09:14] LABS: ALANINE AMINOTRANSFERASE 16 U/L (12-78); ALBUMIN 3.6 g/dL (3.4-5.0); ALKALINE PHOSPHATASE 121 U/L (46-116); ASPARTATE AMINOTRANSFERASE 17 U/L (15-37); BILIRUBIN,TOTAL 0.4 mg/dL (0.1-1.0); TOTAL PROTEIN, SERUM 7.7 g/dL (6.4-8.2)
[2019-11-29 09:16] LABS: B-TYPE NATRIURETIC PEPTIDE 15 pg/mL (0-100)
[2019-11-29] MEDS ORDERED: KETOROLAC TROMETHAMINE 30 MG/ML VIAL IVP ONE (09:30)
[2019-11-29] MEDS ORDERED: KETOROLAC TROMETHAMINE 60 MG/2 ML VIAL IM ONE (09:45)
[2019-11-29 10:07] VITALS: BP 145/88
== END 2019-11-29 10:10 | disposition home or self-care (01) ==
LOC: EMS 07:15
DX: M32.9 Systemic lupus erythematosus, unspecified (principal); M79.671 Pain in right foot; M79.672 Pain in left foot; F31.9 Bipolar disorder, unspecified; E78.00 Pure hypercholesterolemia, unspecified; I10 Essential (primary) hypertension; F20.9 Schizophrenia, unspecified; F17.210 Nicotine dependence, cigarettes, uncomplicated; F14.90 Cocaine use, unspecified, uncomplicated; Z88.8 Allergy status to other drugs, medicaments and biological substances; Z88.5 Allergy status to narcotic agent; Z88.0 Allergy status to penicillin
CPT/HCPCS: 36415; 71045; 80053; 83880; 84484; 85025; 93005; 96372; 99285; J1885

== ENCOUNTER 2019-12-04 07:04 | Emergency (ER) | payer MEDICARE, OTHER ==
[~2019-12-04] VITALS: Ht 170.2 cm; Wt 96.9 kg
[2019-12-04] MEDS ORDERED: ACETAMINOPHEN 500 MG TABLET PO ONE (08:00)
[2019-12-04] MEDS: KETAMINE HCL 50 MG/ML 10 ML VIAL IM ONE ×2 (08:50→09:04)
[2019-12-04] MEDS ORDERED: IBUPROFEN 600 MG TABLET PO ONE (09:15)
[2019-12-04 10:54] VITALS: BP 166/98
== END 2019-12-04 10:55 | disposition home or self-care (01) ==
LOC: EMS 07:04
DX: M25.561 Pain in right knee (principal); M25.562 Pain in left knee; I10 Essential (primary) hypertension; E78.00 Pure hypercholesterolemia, unspecified; F31.9 Bipolar disorder, unspecified; F20.9 Schizophrenia, unspecified; F14.90 Cocaine use, unspecified, uncomplicated; F17.210 Nicotine dependence, cigarettes, uncomplicated; Z88.0 Allergy status to penicillin; Z88.5 Allergy status to narcotic agent; Z88.8 Allergy status to other drugs, medicaments and biological substances; Z79.899 Other long term (current) drug therapy; W18.39XA Other fall on same level, initial encounter; Y93.89 Activity, other specified; Y92.89 Other specified places as the place of occurrence of the external cause; Y99.8 Other external cause status
CPT/HCPCS: J3490

== ENCOUNTER 2019-12-10 16:29 | Emergency (ER) | payer MEDICARE, OTHER ==
[~2019-12-10] VITALS: Ht 167.6 cm; Wt 84.1 kg
[2019-12-10] MEDS ORDERED: HYDROCODONE/ACETAMINOPHEN 5-325 MG TABLET PO ONE (17:00)
[2019-12-10] MEDS ORDERED: PredniSONE 20 MG TABLET PO ONE (17:00)
[2019-12-10 21:00] VITALS: BP 131/82
== END 2019-12-10 21:10 | disposition home or self-care (01) ==
LOC: EMS 16:29
DX: M79.672 Pain in left foot (principal); M79.671 Pain in right foot; I10 Essential (primary) hypertension; F20.9 Schizophrenia, unspecified; F31.9 Bipolar disorder, unspecified; F17.210 Nicotine dependence, cigarettes, uncomplicated; F14.90 Cocaine use, unspecified, uncomplicated; Z88.5 Allergy status to narcotic agent; Z88.0 Allergy status to penicillin; Z79.899 Other long term (current) drug therapy
CPT/HCPCS: 99283; J7512

== ENCOUNTER 2019-12-11 20:54 | Emergency (ER) | payer MEDICARE, OTHER ==
[~2019-12-11] VITALS: Ht 170.2 cm; Wt 100.0 kg
[2019-12-11] MEDS ORDERED: PredniSONE 20 MG TABLET PO ONE (22:45)
[2019-12-11] MEDS ORDERED: HYDROCODONE/ACETAMINOPHEN 5-325 MG TABLET PO ONE (22:45)
[2019-12-12 02:45] VITALS: BP 135/75
== END 2019-12-12 03:14 | disposition home or self-care (01) ==
LOC: EMS 20:54
DX: M32.9 Systemic lupus erythematosus, unspecified (principal); M79.89 Other specified soft tissue disorders
CPT/HCPCS: 93005; 99283; J7512

== ENCOUNTER 2020-04-01 17:33 | Emergency (ER) | payer MEDICARE, OTHER ==
[~2020-04-01] VITALS: Ht 170.2 cm; Wt 102.3 kg
[2020-04-01] MEDS ORDERED: LOSA50TA37 PO (19:43)
[2020-04-01] MEDS ORDERED: GABA-1181 PO (19:43)
[2020-04-01] MEDS ORDERED: MIRT30 PO (19:43)
[2020-04-01 20:21] LABS: COVID AG,FIA SOURCE NASOPHARYNGEAL
[2020-04-01] MEDS ORDERED: HYDROCODONE/ACETAMINOPHEN 5-325 MG TABLET PO ONE (21:15)
[2020-04-01] MEDS ORDERED: PredniSONE 20 MG TABLET PO ONE (21:15)
[2020-04-01 22:42] VITALS: BP 151/85
== END 2020-04-01 23:09 | disposition home or self-care (01) ==
LOC: EMS 17:35
DX: S40.011A Contusion of right shoulder, initial encounter (principal); M32.9 Systemic lupus erythematosus, unspecified; Z20.822 Contact with and (suspected) exposure to COVID-19; F17.210 Nicotine dependence, cigarettes, uncomplicated; F14.90 Cocaine use, unspecified, uncomplicated; X58.XXXA Exposure to other specified factors, initial encounter; Y93.89 Activity, other specified; Y92.89 Other specified places as the place of occurrence of the external cause; Y99.8 Other external cause status
CPT/HCPCS: 71045; 73030; 87426; 93005; 99285; J7512

== ENCOUNTER 2020-05-28 21:37 | Inpatient (IN) | payer MEDICARE, MEDICAID ==
[~2020-05-28] VITALS: Ht 154.2 cm; Wt 94.9 kg
[~2020-05-28 21:37] MED LIST changes: -ACET-3207 PO; -ATOR20TA86 PO; -BISA10SU11 PR; -DOCU-275 PO; +GABA-1181 PO; -IBUP-1506 PO; +LOSA50TA37 PO; -METO50 PO; +MIRT30 PO; -MOM30 PO; -PANT-31 PO; -QUET200T PO
[2020-05-29] MEDS ORDERED: KETOROLAC TROMETHAMINE 30 MG/ML VIAL IVP ONE (01:45)
[2020-05-29] MEDS ORDERED: ONDANSETRON HCL 4 MG/2 ML VIAL IVP ONE (01:45)
[2020-05-29 03:05] LABS: BASOPHILS % (AUTO) 0.6 % (0.0-2.0); EOSINOPHILS % (AUTO) 1.1 % (1.0-6.0); HEMATOCRIT 44.9 % (36-46); HEMOGLOBIN 14.9 g/dL (12.0-16.0); LYMPHOCYTES # (AUTO) 2.3 K/uL (1.0-4.8); LYMPHOCYTES % (AUTO) 36.5 % (22.0-44.0); MEAN CORPUSCULAR HEMOGLOBIN 29.7 pg (26.0-34.0); MEAN CORPUSCULAR HGB CONC 33.1 G/dL (31.0-37.0); MEAN CORPUSCULAR VOLUME 90 fL (80-100); MONOCYTES # (AUTO) 0.6 K/uL (0.1-1.0); MONOCYTES % (AUTO) 10.4 % (2.0-9.0); NEUTROPHILS # (AUTO) 3.2 K/uL (1.8-7.7); NEUTROPHILS % (AUTO) 51.4 % (40.0-70.0); PLATELET COUNT (AUTO) 349 K/uL (150-450); RED BLOOD CELL COUNT(AUTO) 5.01 MIL/uL (4.00-5.20); RED CELL DISTRIBUTION WIDTH 13.7 % (11.5-14.5)
[2020-05-29 03:16] LABS: ANION GAP 11 mmol/L (8-16); CARBON DIOXIDE 25 mmol/L (22-29); CHLORIDE 103 mmol/L (98-107); CREATININE 0.79 mg/dL (0.60-1.30); GLOMERULAR FILTR. RATE CALC > 60 mL/min (>60); GLUCOSE,RANDOM 92 mg/dL (70-110); POTASSIUM 3.7 mmol/L (3.5-5.1); SODIUM SERUM 139 mmol/L (136-145); UREA NITROGEN, BLOOD 21 mg/dL (7-18)
[2020-05-29 03:20] LABS: PROTHROMBIN TIME 11.1 SEC (9.4-11.6)
[2020-05-29 03:21] LABS: ALANINE AMINOTRANSFERASE 12 U/L (12-78); ALBUMIN 3.9 g/dL (3.4-5.0); ALKALINE PHOSPHATASE 126 U/L (46-116); ASPARTATE AMINOTRANSFERASE 12 U/L (15-37); BILIRUBIN,TOTAL 0.5 mg/dL (0.1-1.0); CREATINE KINASE, TOTAL ONLY 67 U/L (26-192); TOTAL PROTEIN, SERUM 8.7 g/dL (6.4-8.2)
[2020-05-29 03:28] LABS: B-TYPE NATRIURETIC PEPTIDE 26 pg/mL (0-100)
[2020-05-29] MEDS ORDERED: OLANZapine 5 MG RAPDIS TABLET PO PRN (05:45)
[2020-05-29 05:51] LABS: COVID AG,FIA SOURCE NASOPHARYNGEAL
[2020-05-29] MEDS: ZOLPIDEM TARTRATE 10 MG TABLET PO PRN (06:30)
[2020-05-29] MEDS ORDERED: LIDOCAINE 5% TRANSDERMAL PATCH TD ONE (16:00)
[2020-05-29] MEDS ORDERED: ACETAMINOPHEN 500 MG TABLET PO ONE (16:00)
[2020-05-29 17:30] VITALS: BP 155/95
[2020-05-29 21:32] VITALS: BP 150/90
[2020-05-30] MEDS: LORazepam 1 MG TABLET PO PRN (01:37)
[2020-05-30 01:48] VITALS: BP 139/91
[2020-05-30] MEDS ORDERED: TraMADol HCL 50 MG TABLET PO PRN (06:45)
[2020-05-30] MEDS ORDERED: LOPERAMIDE HCL 2 MG CAPSULE PO PRN (08:30)
[2020-05-30] MEDS ORDERED: CloNIDine HCL 0.1 MG TABLET PO PRN (08:30)
[2020-05-30] MEDS ORDERED: NICOTINE 14 MG/24 HOUR PATCH TD PRN (08:30)
[2020-05-30] MEDS ORDERED: MAGNESIUM HYDROXIDE SUSPENSION 30 ML UDCUP PO PRN (08:30)
[2020-05-30] MEDS ORDERED: MAG HYDROX/AL HYDROX/SIMETH ES 30 ML SUSPENSION UDCUP PO PRN (08:30)
[2020-05-30] MEDS ORDERED: ONDANSETRON HCL 4 MG TABLET PO PRN (08:30)
[2020-05-30] MEDS ORDERED: PETROLATUM,WHITE 28 GM JELLY TP PRN (08:30)
[2020-05-30] MEDS ORDERED: ALBUTEROL SULFATE HFA 90 MCG/PUFF 8 GM INHALER IH PRN (08:30)
[2020-05-30] MEDS ORDERED: GuaiFENesin/D-METHORPHAN [SUGAR-FREE] 200-20MG/10 ML SYRUP UDCUP PO PRN (08:30)
[2020-05-30 08:40] VITALS: BP 126/88
[2020-05-30] MEDS: AmLODIPine BESYLATE 5 MG TABLET PO SCH (11:15)
[2020-05-30] MEDS: LOSARTAN POTASSIUM 50 MG TABLET PO SCH (11:15)
[2020-05-30] MEDS: LURASIDONE HCL 80 MG TABLET PO SCH (16:53)
[2020-05-30 19:32] VITALS: BP 158/93
[2020-05-30] MEDS: MIRTAZAPINE 30 MG TABLET PO SCH (20:43)
[2020-05-30] MEDS: GABAPENTIN 300 MG CAPSULE PO SCH (20:43)
[2020-05-31 04:03] VITALS: BP 147/90
[2020-05-31 08:44] VITALS: BP 159/63
[2020-05-31] MEDS: AmLODIPine BESYLATE 5 MG TABLET PO SCH (08:47)
[2020-05-31] MEDS: LOSARTAN POTASSIUM 50 MG TABLET PO SCH (08:47)
[2020-05-31 16:10] VITALS: BP 121/79
[2020-05-31] MEDS: LURASIDONE HCL 80 MG TABLET PO SCH (17:15)
[2020-05-31] MEDS: GABAPENTIN 300 MG CAPSULE PO SCH (20:58)
[2020-05-31] MEDS: MIRTAZAPINE 30 MG TABLET PO SCH (20:58)
[2020-05-31] MEDS: ACETAMINOPHEN 325 MG TABLET PO PRN (21:27)
[2020-06-01 05:28] VITALS: BP 155/87
[2020-06-01] MEDS: IBUPROFEN 400 MG TABLET PO PRN (05:30)
[2020-06-01 08:52] VITALS: BP 160/113
[2020-06-01] MEDS: LOSARTAN POTASSIUM 50 MG TABLET PO SCH (09:00)
[2020-06-01] MEDS: AmLODIPine BESYLATE 5 MG TABLET PO SCH (09:00)
[2020-06-01 16:23] VITALS: BP 140/79
[2020-06-01] MEDS: LURASIDONE HCL 80 MG TABLET PO SCH (16:37)
[2020-06-01] MEDS: GABAPENTIN 300 MG CAPSULE PO SCH (21:22)
[2020-06-01] MEDS: MIRTAZAPINE 30 MG TABLET PO SCH (21:23)
[2020-06-01] MEDS: ZOLPIDEM TARTRATE 10 MG TABLET PO PRN (21:28)
[2020-06-02] MEDS: AmLODIPine BESYLATE 5 MG TABLET PO SCH (08:14)
[2020-06-02] MEDS: LOSARTAN POTASSIUM 50 MG TABLET PO SCH (08:14)
[2020-06-02 09:33] VITALS: BP 131/85
[2020-06-02 16:07] VITALS: BP 125/84
[2020-06-02] MEDS: LURASIDONE HCL 80 MG TABLET PO SCH (16:20)
[2020-06-02] MEDS: MIRTAZAPINE 30 MG TABLET PO SCH (20:43)
[2020-06-02] MEDS: GABAPENTIN 300 MG CAPSULE PO SCH (20:43)
[2020-06-03 09:22] VITALS: BP 140/92
[2020-06-03] MEDS: LOSARTAN POTASSIUM 50 MG TABLET PO SCH (09:47)
[2020-06-03] MEDS: AmLODIPine BESYLATE 5 MG TABLET PO SCH (09:47)
[2020-06-03 16:00] VITALS: BP 127/81
[2020-06-03] MEDS: LURASIDONE HCL 80 MG TABLET PO SCH (16:03)
[2020-06-03] MEDS: ACETAMINOPHEN 325 MG TABLET PO PRN (16:27)
[2020-06-03] MEDS: GABAPENTIN 300 MG CAPSULE PO SCH (20:54)
[2020-06-03] MEDS: MIRTAZAPINE 30 MG TABLET PO SCH (20:54)
[2020-06-04 02:35] VITALS: BP 160/91
[2020-06-04] MEDS: IBUPROFEN 400 MG TABLET PO PRN (02:35)
[2020-06-04 08:50] VITALS: BP 146/92
[2020-06-04] MEDS: AmLODIPine BESYLATE 5 MG TABLET PO SCH (09:07)
[2020-06-04] MEDS: LOSARTAN POTASSIUM 50 MG TABLET PO SCH (09:07)
[2020-06-04] MEDS: LORazepam 1 MG TABLET PO PRN (13:03)
[2020-06-04] MEDS: LURASIDONE HCL 80 MG TABLET PO SCH (16:33)
[2020-06-04 19:27] VITALS: BP 139/86
[2020-06-04] MEDS: MIRTAZAPINE 30 MG TABLET PO SCH (21:10)
[2020-06-04] MEDS: GABAPENTIN 300 MG CAPSULE PO SCH (21:10)
[2020-06-05] MEDS: LOSARTAN POTASSIUM 50 MG TABLET PO SCH (09:37)
[2020-06-05] MEDS: AmLODIPine BESYLATE 5 MG TABLET PO SCH (09:37)
[2020-06-05 10:20] VITALS: BP 147/92
[2020-06-05 16:02] VITALS: BP 138/88
[2020-06-05] MEDS: LURASIDONE HCL 80 MG TABLET PO SCH (17:06)
[2020-06-05] MEDS: LORazepam 1 MG TABLET PO PRN (18:45)
[2020-06-05] MEDS: GABAPENTIN 300 MG CAPSULE PO SCH (20:08)
[2020-06-05] MEDS: MIRTAZAPINE 30 MG TABLET PO SCH (20:08)
[2020-06-06 08:45] VITALS: BP 151/99
[2020-06-06] MEDS: LOSARTAN POTASSIUM 50 MG TABLET PO SCH (10:08)
[2020-06-06] MEDS: AmLODIPine BESYLATE 5 MG TABLET PO SCH (10:13)
[2020-06-06 16:10] VITALS: BP 147/84
[2020-06-06] MEDS: LURASIDONE HCL 80 MG TABLET PO SCH (16:23)
[2020-06-06] MEDS: GABAPENTIN 300 MG CAPSULE PO SCH (20:31)
[2020-06-06] MEDS: MIRTAZAPINE 30 MG TABLET PO SCH (20:31)
[2020-06-07 05:22] VITALS: BP 124/89
[2020-06-07 08:15] VITALS: BP 139/109
[2020-06-07] MEDS: AmLODIPine BESYLATE 5 MG TABLET PO SCH (09:28)
[2020-06-07] MEDS: LOSARTAN POTASSIUM 50 MG TABLET PO SCH (09:32)
[2020-06-07 12:47] LABS: COVID AG,FIA SOURCE NASOPHARYNGEAL
[2020-06-07] MEDS: IBUPROFEN 400 MG TABLET PO PRN (14:19)
[2020-06-07 14:20] VITALS: BP 136/78
[2020-06-07 15:21] VITALS: BP 128/75
[2020-06-07] MEDS: LURASIDONE HCL 80 MG TABLET PO SCH (16:08)
[2020-06-07 16:17] VITALS: BP 127/73
[2020-06-07] MEDS: GABAPENTIN 300 MG CAPSULE PO SCH (20:00)
[2020-06-07] MEDS: MIRTAZAPINE 30 MG TABLET PO SCH (20:00)
[2020-06-08 08:14] VITALS: BP 148/89
[2020-06-08] MEDS: LOSARTAN POTASSIUM 50 MG TABLET PO SCH (08:37)
[2020-06-08] MEDS: AmLODIPine BESYLATE 5 MG TABLET PO SCH (08:37)
[2020-06-08] MEDS: IBUPROFEN 400 MG TABLET PO PRN (10:41)
[2020-06-08 10:45] VITALS: BP 150/85
[2020-06-08 11:42] VITALS: BP 120/75
[2020-06-08 16:07] VITALS: BP 129/84
[2020-06-08] MEDS: ACETAMINOPHEN 325 MG TABLET PO PRN (16:33)
[2020-06-08] MEDS: LURASIDONE HCL 80 MG TABLET PO SCH (16:34)
[2020-06-08] MEDS: MIRTAZAPINE 30 MG TABLET PO SCH (20:51)
[2020-06-08] MEDS: GABAPENTIN 300 MG CAPSULE PO SCH (20:52)
[2020-06-09] MEDS: LOSARTAN POTASSIUM 50 MG TABLET PO SCH (08:22)
[2020-06-09] MEDS: AmLODIPine BESYLATE 5 MG TABLET PO SCH (08:22)
[2020-06-09 08:30] VITALS: BP 162/90
[2020-06-09 16:07] VITALS: BP 150/84
[2020-06-09] MEDS: LURASIDONE HCL 80 MG TABLET PO SCH (16:36)
[2020-06-09] MEDS: GABAPENTIN 300 MG CAPSULE PO SCH (20:26)
[2020-06-09] MEDS: MIRTAZAPINE 30 MG TABLET PO SCH (20:27)
[2020-06-10 08:10] VITALS: BP 150/90
[2020-06-10] MEDS: AmLODIPine BESYLATE 5 MG TABLET PO SCH (08:46)
[2020-06-10] MEDS: LOSARTAN POTASSIUM 50 MG TABLET PO SCH (08:46)
[2020-06-10] MEDS ORDERED: TUBERCULIN, PURIFIED PROTEIN DERIVATIVE 5 TU/0.1 ML SYRINGE ID ONE (14:30)
[2020-06-10 16:03] VITALS: BP 122/85
[2020-06-10] MEDS: LURASIDONE HCL 80 MG TABLET PO SCH (17:24)
[2020-06-10] MEDS: IBUPROFEN 400 MG TABLET PO PRN (17:44)
[2020-06-10] MEDS: GABAPENTIN 300 MG CAPSULE PO SCH (21:04)
[2020-06-10] MEDS: MIRTAZAPINE 30 MG TABLET PO SCH (21:04)
[2020-06-11] MEDS: AmLODIPine BESYLATE 5 MG TABLET PO SCH (08:10)
[2020-06-11] MEDS: LOSARTAN POTASSIUM 50 MG TABLET PO SCH (08:10)
[2020-06-11 08:40] VITALS: BP 156/98
[2020-06-11 16:00] VITALS: BP 148/83
== END 2020-06-11 16:00 | DRG 881 ==
LOC: EMS 21:37 → 3EI 05-29 05:39
PROVIDERS: ADMIT Psychiatry & Neurology Psychiatry; ATTEND Psychiatry & Neurology Psychiatry
DX: F32.9 Major depressive disorder, single episode, unspecified (principal); M32.19 Other organ or system involvement in systemic lupus erythematosus; R45.851 Suicidal ideations; E78.5 Hyperlipidemia, unspecified; I10 Essential (primary) hypertension; F41.9 Anxiety disorder, unspecified; G62.9 Polyneuropathy, unspecified; G89.29 Other chronic pain; E78.00 Pure hypercholesterolemia, unspecified; E83.52 Hypercalcemia; F14.90 Cocaine use, unspecified, uncomplicated; M14.80 Arthropathies in other specified diseases classified elsewhere, unspecified site; Z20.822 Contact with and (suspected) exposure to COVID-19; R56.9 Unspecified convulsions; Z87.891 Personal history of nicotine dependence
CPT/HCPCS: 87426; 93005; 97110; 97116; 97162; 97166; 97530; 97535; 99285; J1885; J2405; 36415-L1; 36415-TC; 71045-TC

== ENCOUNTER 2021-11-28 15:03 | Emergency (ER) | payer MEDICARE, OTHER ==
[~2021-11-28] VITALS: Ht 170.2 cm; Wt 86.4 kg
[~2021-11-28 15:03] MED LIST changes: +LOSA-382 PO; -LOSA50TA37 PO
[2021-11-28] MEDS ORDERED: IBUPROFEN 400 MG TABLET PO ONE (17:45)
[2021-11-28 19:15] VITALS: BP 156/76
== END 2021-11-28 21:00 | disposition still patient (30) ==
LOC: EMS 15:07
DX: M25.562 Pain in left knee (principal); M25.561 Pain in right knee; E78.00 Pure hypercholesterolemia, unspecified; F20.9 Schizophrenia, unspecified; F31.9 Bipolar disorder, unspecified; F10.20 Alcohol dependence, uncomplicated; F14.10 Cocaine abuse, uncomplicated; F17.210 Nicotine dependence, cigarettes, uncomplicated; I10 Essential (primary) hypertension; I73.00 Raynaud's syndrome without gangrene; M32.10 Systemic lupus erythematosus, organ or system involvement unspecified; W13.3XXA Fall through floor, initial encounter; Y93.89 Activity, other specified; Y92.89 Other specified places as the place of occurrence of the external cause; Y99.8 Other external cause status; Z88.0 Allergy status to penicillin; Z88.6 Allergy status to analgesic agent
CPT/HCPCS: 99283

== ENCOUNTER 2022-04-06 11:59 | Emergency (ER) | payer MEDICARE, OTHER ==
[~2022-04-06 11:59] MED LIST changes: +MIRT-149 PO; -MIRT30 PO
== END 2022-04-06 12:37 | disposition left against medical advice (07) ==
LOC: EMS 12:37
DX: M54.30 Sciatica, unspecified side (principal); Z53.21 Procedure and treatment not carried out due to patient leaving prior to being seen by health care provider

== ENCOUNTER 2022-05-14 12:31 | Emergency (ER) | payer MEDICARE, OTHER ==
[~2022-05-14] VITALS: Ht 170.2 cm; Wt 95.5 kg
[2022-05-14] MEDS ORDERED: HYDROCODONE/ACETAMINOPHEN 5-325 MG TABLET PO ONE (14:00)
[2022-05-14] MEDS ORDERED: GABAPENTIN 300 MG CAPSULE PO ONE (14:00)
[2022-05-14] MEDS ORDERED: CEPHALEXIN MONOHYDRATE 500 MG CAPSULE PO ONE (14:15)
[2022-05-14] MEDS ORDERED: GuaiFENesin/D-METHORPHAN [SUGAR-FREE] 200-20MG/10 ML SYRUP UDCUP PO ONE (14:15)
[2022-05-14 14:40] VITALS: BP 133/75
[2022-05-14] MEDS ORDERED: GUAIFDM PO (14:50)
[2022-05-14] MEDS ORDERED: GABA-1181 PO (14:50)
[2022-05-14] MEDS ORDERED: CEPH-558 PO (14:50)
== END 2022-05-14 15:08 | disposition home or self-care (01) ==
LOC: EMS 12:56
DX: M79.672 Pain in left foot (principal); M79.671 Pain in right foot; J40 Bronchitis, not specified as acute or chronic; L03.115 Cellulitis of right lower limb; G89.29 Other chronic pain; F31.9 Bipolar disorder, unspecified; E78.00 Pure hypercholesterolemia, unspecified; I10 Essential (primary) hypertension; F20.9 Schizophrenia, unspecified; F17.210 Nicotine dependence, cigarettes, uncomplicated; F14.90 Cocaine use, unspecified, uncomplicated; Z90.89 Acquired absence of other organs; Z98.890 Other specified postprocedural states; Z88.5 Allergy status to narcotic agent; Z88.0 Allergy status to penicillin; Z88.8 Allergy status to other drugs, medicaments and biological substances
CPT/HCPCS: 99283; 99284

== ENCOUNTER 2022-07-25 18:40 | Emergency (ER) | payer MEDICARE, OTHER ==
[~2022-07-25] VITALS: Ht 170.2 cm; Wt 97.7 kg
[~2022-07-25 18:40] MED LIST changes: +CEPH-558 PO; +GUAIFDM PO
[2022-07-25 19:06] VITALS: BP 180/120
[2022-07-25] MEDS ORDERED: HYDROCODONE/ACETAMINOPHEN 5-325 MG TABLET PO ONE (19:15)
== END 2022-07-25 19:38 | disposition home or self-care (01) ==
LOC: EMS 18:41
DX: M25.562 Pain in left knee (principal); M25.561 Pain in right knee; G89.4 Chronic pain syndrome; E78.00 Pure hypercholesterolemia, unspecified; I10 Essential (primary) hypertension; F31.9 Bipolar disorder, unspecified; F20.9 Schizophrenia, unspecified; R56.9 Unspecified convulsions; F17.210 Nicotine dependence, cigarettes, uncomplicated; F14.90 Cocaine use, unspecified, uncomplicated; Z90.89 Acquired absence of other organs; Z88.0 Allergy status to penicillin; Z88.5 Allergy status to narcotic agent; Z88.8 Allergy status to other drugs, medicaments and biological substances
CPT/HCPCS: 99283

== ENCOUNTER 2022-08-23 12:36 | Emergency (ER) | payer MEDICARE, OTHER ==
[~2022-08-23] VITALS: Ht 165.1 cm; Wt 59.1 kg
[~2022-08-23 12:36] MED LIST changes: -CEPH-558 PO; -GUAIFDM PO
[2022-08-23 12:45] VITALS: TEMP 98.6
[2022-08-23] MEDS ORDERED: LOSA100T59 PO (13:10)
[2022-08-23] MEDS ORDERED: AMLO10TA55 PO (13:10)
[2022-08-23] MEDS ORDERED: ACETAMINOPHEN 500 MG TABLET PO ONE (13:15)
[2022-08-23 13:51] VITALS: BP 129/63; PULSE 100; RESP 16
== END 2022-08-23 14:23 | disposition home or self-care (01) ==
LOC: EMS 12:56
DX: M79.672 Pain in left foot (principal); M79.671 Pain in right foot; F31.9 Bipolar disorder, unspecified; E78.00 Pure hypercholesterolemia, unspecified; I10 Essential (primary) hypertension; F20.9 Schizophrenia, unspecified; I73.00 Raynaud's syndrome without gangrene; F17.210 Nicotine dependence, cigarettes, uncomplicated; F14.90 Cocaine use, unspecified, uncomplicated; Z98.890 Other specified postprocedural states; Z90.89 Acquired absence of other organs; Z88.5 Allergy status to narcotic agent; Z88.0 Allergy status to penicillin; Z88.8 Allergy status to other drugs, medicaments and biological substances
CPT/HCPCS: 99282; Z7502; Z7610

== ENCOUNTER 2022-11-15 10:11 | Emergency (ER) | payer MEDICARE, OTHER ==
[~2022-11-15] VITALS: Ht 170.2 cm; Wt 97.7 kg
[~2022-11-15 10:11] MED LIST changes: -AMLO-258 PO; +AMLO10TA55 PO; -LOSA-382 PO; +LOSA100T59 PO
[2022-11-15 10:20] VITALS: TEMP 98.2
[2022-11-15] MEDS ORDERED: HYDROCODONE/ACETAMINOPHEN 5-325 MG TABLET PO ONE (10:45)
[2022-11-15 11:30] VITALS: BP 156/88; PULSE 97; RESP 18
== END 2022-11-15 12:04 | disposition home or self-care (01) ==
LOC: EMS 10:13
DX: G89.4 Chronic pain syndrome (principal); F31.9 Bipolar disorder, unspecified; M79.672 Pain in left foot; M79.671 Pain in right foot; R60.0 Localized edema; E78.00 Pure hypercholesterolemia, unspecified; I10 Essential (primary) hypertension; F20.9 Schizophrenia, unspecified; F17.210 Nicotine dependence, cigarettes, uncomplicated; F14.90 Cocaine use, unspecified, uncomplicated; Z98.890 Other specified postprocedural states; Z88.6 Allergy status to analgesic agent; Z88.0 Allergy status to penicillin; Z88.8 Allergy status to other drugs, medicaments and biological substances; Z87.39 Personal history of other diseases of the musculoskeletal system and connective tissue
CPT/HCPCS: 99283

== ENCOUNTER 2022-11-15 19:16 | Emergency (ER) | payer MEDICARE, OTHER ==
[~2022-11-15] VITALS: Ht 170.2 cm; Wt 120.0 kg
[2022-11-15 21:00] VITALS: BP 179/107; PULSE 114; RESP 14; TEMP 99.2
[2022-11-15] MEDS ORDERED: SODIUM CHLORIDE 0.9% 1,000 ML IV ONE (22:15)
[2022-11-15] MEDS ORDERED: ACETAMINOPHEN 500 MG TABLET PO ONE (22:15)
== END 2022-11-16 01:10 | disposition left against medical advice (07) ==
LOC: EMS 19:17
DX: S30.1XXA Contusion of abdominal wall, initial encounter (principal); S20.212A Contusion of left front wall of thorax, initial encounter; E78.00 Pure hypercholesterolemia, unspecified; I10 Essential (primary) hypertension; F32.A Depression, unspecified; F20.9 Schizophrenia, unspecified; R56.9 Unspecified convulsions; F17.210 Nicotine dependence, cigarettes, uncomplicated; F14.90 Cocaine use, unspecified, uncomplicated; Z88.0 Allergy status to penicillin; Z88.6 Allergy status to analgesic agent; Y08.89XA Assault by other specified means, initial encounter; Y93.89 Activity, other specified; Y92.89 Other specified places as the place of occurrence of the external cause; Y99.8 Other external cause status
CPT/HCPCS: 99281; Z7502

== ENCOUNTER 2023-05-20 16:01 | Inpatient (IN) | payer MEDICARE, MEDICAID ==
[~2023-05-20] VITALS: Ht 167.6 cm; Wt 77.3 kg
[2023-05-20 16:53] LABS: BASOPHILS % (AUTO) 0.4 % (0.0-2.0); EOSINOPHILS % (AUTO) 0.9 % (1.0-6.0); HEMATOCRIT 41.7 % (36-46); HEMOGLOBIN 13.7 g/dL (12.0-16.0); LYMPHOCYTES # (AUTO) 1.6 K/uL (1.0-4.8); LYMPHOCYTES % (AUTO) 34.7 % (22.0-44.0); MEAN CORPUSCULAR HEMOGLOBIN 29.7 pg (26.0-34.0); MEAN CORPUSCULAR HGB CONC 32.8 G/dL (31.0-37.0); MEAN CORPUSCULAR VOLUME 91 fL (80-100); MONOCYTES # (AUTO) 0.5 K/uL (0.1-1.0); MONOCYTES % (AUTO) 11.4 % (2.0-9.0); NEUTROPHILS # (AUTO) 2.4 K/uL (1.8-7.7); NEUTROPHILS % (AUTO) 52.6 % (40.0-70.0); PLATELET COUNT (AUTO) 282 K/uL (150-450); RED CELL DISTRIBUTION WIDTH 13.9 % (11.5-14.5); WHITE BLOOD COUNT (AUTO) 4.5 K/uL (4.5-11.0)
[2023-05-20 17:02] LABS: ANION GAP 8 mmol/L (8-16); CALCIUM, TOTAL 10.5 mg/dL (8.8-10.5); CARBON DIOXIDE 27 mmol/L (22-29); CHLORIDE 106 mmol/L (98-107); CREATININE 0.86 mg/dL (0.60-1.30); GLOMERULAR FILTR. RATE CALC > 60 mL/min (>60); GLUCOSE,RANDOM 93 mg/dL (70-110); POTASSIUM 4.4 mmol/L (3.5-5.1); SODIUM SERUM 141 mmol/L (136-145); UREA NITROGEN, BLOOD 24 mg/dL (7-18)
[2023-05-20 17:04] LABS: ALCOHOL, URINE DRUG SCREEN NEGATIVE (NEGATIVE); AMPHET/METH SCREEN,URINE NEGATIVE (NEGATIVE); BARBITURATE SCREEN, URINE NEGATIVE (NEGATIVE); BENZODIAZEPINES SCREEN,URINE NEGATIVE (NEGATIVE); CANNABINOID SCREEN,URINE NEGATIVE (NEGATIVE); COCAINE SCREEN,URINE NEGATIVE (NEGATIVE); METHADONE SCREEN, URINE NEGATIVE (NEGATIVE); OPIATE SCREEN,URINE NEGATIVE (NEGATIVE); PHENCYCLIDINE SCREEN,URINE NEGATIVE (NEGATIVE)
[2023-05-20 17:07] LABS: ALCOHOL, BLOOD (SERUM) < 3 mg/dL (0-10)
[2023-05-20 17:08] LABS: ALANINE AMINOTRANSFERASE 12 U/L (12-78); ALBUMIN 3.5 g/dL (3.4-5.0); ALKALINE PHOSPHATASE 123 U/L (46-116); ASPARTATE AMINOTRANSFERASE 22 U/L (15-37); BILIRUBIN,TOTAL 0.2 mg/dL (0.1-1.0); TOTAL PROTEIN, SERUM 7.9 g/dL (6.4-8.2)
[2023-05-20 17:10] LABS: COVID AG,FIA SOURCE NASAL SWAB
[2023-05-20 17:40] LABS: SARS-COV2 (COVID) ANTIGEN,FIA Negative (Negative)
[2023-05-20] MEDS: ZOLPIDEM TARTRATE 10 MG TABLET PO PRN (19:58)
[2023-05-20] MEDS: HALOPERIDOL 5 MG TABLET PO PRN (19:58)
[2023-05-21] MEDS: LORazepam 2 MG TABLET PO PRN (00:57)
[2023-05-21] MEDS: ACETAMINOPHEN 500 MG TABLET PO ONE (15:22)
[2023-05-23 01:34] VITALS: BP 148/104; PULSE 107; RESP 18; TEMP 98.6
[2023-05-23] MEDS: GABAPENTIN 300 MG CAPSULE PO SCH (09:15)
[2023-05-23 10:40] VITALS: BP 17/147; PULSE 77; RESP 17; TEMP 97.9
[2023-05-23] MEDS: AmLODIPine BESYLATE 10 MG TABLET PO SCH (12:01)
[2023-05-23] MEDS: LOSARTAN POTASSIUM 50 MG TABLET PO SCH (12:01)
[2023-05-23] MEDS ORDERED: ONDANSETRON HCL 4 MG TABLET PO PRN (15:00)
[2023-05-23] MEDS ORDERED: DOCUSATE SODIUM 100 MG CAPSULE PO PRN (15:00)
[2023-05-23] MEDS ORDERED: CloNIDine HCL 0.1 MG TABLET PO PRN (15:00)
[2023-05-23] MEDS ORDERED: MAGNESIUM HYDROXIDE SUSPENSION 30 ML UDCUP PO PRN (15:00)
[2023-05-23] MEDS ORDERED: GuaiFENesin/D-METHORPHAN [SUGAR-FREE] 200-20MG/10 ML SYRUP UDCUP PO PRN (15:00)
[2023-05-23] MEDS ORDERED: ALBUTEROL SULFATE HFA 90 MCG/PUFF 8 GM INHALER IH PRN (15:00)
[2023-05-23] MEDS ORDERED: MAG HYDROX/ALUMINUM HYD/SIMETH ES 30 ML SUSPENSION UDCUP PO PRN (15:00)
[2023-05-23] MEDS ORDERED: NICOTINE 14 MG/24 HOUR PATCH TD PRN (15:00)
[2023-05-23] MEDS ORDERED: PETROLATUM,WHITE 28 GM JELLY TP PRN (15:00)
[2023-05-23 17:32] VITALS: BP 138/86; PULSE 82; RESP 18; TEMP 97.6
[2023-05-23] MEDS: LURASIDONE HCL 80 MG TABLET PO SCH (17:32)
[2023-05-23] MEDS: ACETAMINOPHEN 325 MG TABLET PO PRN (17:32)
[2023-05-23 18:32] VITALS: BP 132/82; PULSE 84; RESP 19; TEMP 97.4
[2023-05-23] MEDS: MIRTAZAPINE 30 MG TABLET PO SCH (20:25)
[2023-05-23 22:40] VITALS: BP 137/93; PULSE 86; RESP 18; TEMP 98.3
[2023-05-24 08:59] VITALS: BP 128/87; PULSE 70; RESP 18; TEMP 98
[2023-05-24 09:59] VITALS: BP 124/82; PULSE 78; RESP 18; TEMP 97.6
[2023-05-25 00:06] VITALS: BP 129/81; PULSE 76; RESP 18
[2023-05-25 10:15] LABS: HEMOGLOBIN A1C 5.8 % (3.8-5.6)
[2023-05-25 10:22] LABS: THYROID STIMULATING HORMONE 2.16 uIU/mL (0.36-3.74)
[2023-05-25 11:00] VITALS: BP 139/77; PULSE 77; RESP 18; TEMP 97.2
[2023-05-25 20:24] VITALS: BP 132/77; PULSE 78; RESP 18; TEMP 98.2
[2023-05-25 21:24] VITALS: RESP 18
[2023-05-26 08:00] VITALS: BP 120/83; PULSE 91; RESP 18; TEMP 98
[2023-05-26 09:46] VITALS: BP 120/83; PULSE 91; RESP 18; TEMP 98
[2023-05-26 21:29] VITALS: BP 134/86; PULSE 90; RESP 18; TEMP 98.4
[2023-05-27 08:00] VITALS: BP 127/83; PULSE 97; RESP 18; TEMP 98.9
[2023-05-27 20:12] VITALS: BP 141/77; PULSE 82; RESP 18; TEMP 97.9
[2023-05-28 09:00] VITALS: BP 147/87; PULSE 74; TEMP 98.2
[2023-05-28 20:20] VITALS: BP 129/73; PULSE 67; RESP 18; TEMP 97.7
[2023-05-29 10:48] VITALS: BP 154/86; PULSE 89; RESP 18; TEMP 97.9
[2023-05-29 20:46] VITALS: BP 135/75; PULSE 73; RESP 19; TEMP 97
[2023-05-30 11:06] VITALS: BP 152/99; PULSE 100; RESP 18; TEMP 97.6
[2023-05-30 20:17] VITALS: BP 127/75; PULSE 78; RESP 18; TEMP 97.3
[2023-05-31 09:01] VITALS: BP 129/75; PULSE 66; RESP 18; TEMP 98.2
[2023-05-31 21:05] VITALS: BP 146/90; PULSE 80; RESP 18; TEMP 97.1
[2023-06-01 11:02] VITALS: BP 161/92; PULSE 82; RESP 20; TEMP 97.5
[2023-06-01 21:28] VITALS: BP 142/82; PULSE 84; RESP 18; TEMP 97.8
[2023-06-02 09:06] VITALS: BP 103/67; PULSE 80; RESP 18; TEMP 97
[2023-06-02 20:35] VITALS: BP 119/78; PULSE 83; RESP 18; TEMP 97.5
[2023-06-03 09:00] VITALS: BP 162/92; PULSE 109; RESP 18; TEMP 97.5
[2023-06-03 20:56] VITALS: BP 134/75; PULSE 85; RESP 18; TEMP 98.1
[2023-06-04 09:16] VITALS: BP 150/86; PULSE 79; RESP 18; TEMP 98.1
[2023-06-04 22:46] VITALS: BP 135/80; PULSE 85; RESP 18; TEMP 97.8
[2023-06-05 08:22] VITALS: BP 158/94; PULSE 71; RESP 18; TEMP 98.6
[2023-06-05 20:27] VITALS: BP 140/82; PULSE 88; RESP 18; TEMP 97
[2023-06-06 08:00] VITALS: BP 149/91; PULSE 92; RESP 19
[2023-06-06 21:54] VITALS: BP 142/84; PULSE 84; RESP 18; TEMP 97.4
[2023-06-07 09:40] VITALS: BP 148/87; PULSE 89; RESP 18; TEMP 97.5
[2023-06-10] MEDS ORDERED: AMLO-258 PO (16:08)
[2023-06-10] MEDS ORDERED: LOSA-382 PO (16:08)
[2023-06-10] MEDS ORDERED: GABA-1181 PO (16:08)
== END 2023-06-07 16:45 | DRG 885 ==
LOC: EMS 16:21 → 3EI 05-22 22:31 → EMS 05-22 22:55 → 3EI 05-22 22:55
PROVIDERS: ADMIT Psychiatry & Neurology Child & Adolescent Psychiatry; ATTEND Psychiatry & Neurology Child & Adolescent Psychiatry
PROC: GZHZZZZ Group Psychotherapy (ICD-10-PCS; principal; 2023-05-23)
PROC: GZ51ZZZ Individual Psychotherapy, Behavioral (ICD-10-PCS; 2023-05-23)
DX: F25.1 Schizoaffective disorder, depressive type (principal); R45.851 Suicidal ideations; I10 Essential (primary) hypertension; Z20.822 Contact with and (suspected) exposure to COVID-19; G47.00 Insomnia, unspecified; Z87.891 Personal history of nicotine dependence; E78.5 Hyperlipidemia, unspecified; F14.90 Cocaine use, unspecified, uncomplicated; R56.9 Unspecified convulsions; Z88.5 Allergy status to narcotic agent; Z88.0 Allergy status to penicillin; Z88.8 Allergy status to other drugs, medicaments and biological substances
CPT/HCPCS: 80053; 80061; 80307; 83036; 84443; 85025; 97116; 97163; 97165; 97530; 97535; 99285; G0480

== ENCOUNTER 2023-10-31 00:31 | Emergency (ER) | payer MEDICARE, OTHER ==
[~2023-10-31] VITALS: Ht 170.2 cm; Wt 90.0 kg
[~2023-10-31 00:31] MED LIST changes: +AMLO-258 PO; -AMLO10TA55 PO; +LOSA-382 PO; -LOSA100T59 PO
[2023-10-31 00:43] VITALS: TEMP 98.3
[2023-10-31] MEDS: TraMADol HCL 50 MG TABLET PO ONE (03:57)
[2023-10-31] MEDS ORDERED: TRAM50TA5 PO (04:45)
[2023-10-31 04:59] VITALS: BP 112/80; PULSE 81; RESP 18; O2SAT 98
== END 2023-10-31 05:02 | disposition home or self-care (01) ==
LOC: EMS 00:31
DX: S83.8X2A Sprain of other specified parts of left knee, initial encounter (principal); F31.9 Bipolar disorder, unspecified; E78.00 Pure hypercholesterolemia, unspecified; I10 Essential (primary) hypertension; F20.9 Schizophrenia, unspecified; F14.90 Cocaine use, unspecified, uncomplicated; F17.210 Nicotine dependence, cigarettes, uncomplicated; Z98.890 Other specified postprocedural states; Z88.0 Allergy status to penicillin; Z88.6 Allergy status to analgesic agent; Z88.8 Allergy status to other drugs, medicaments and biological substances; W22.8XXA Striking against or struck by other objects, initial encounter; Y93.89 Activity, other specified; Y92.89 Other specified places as the place of occurrence of the external cause; Y99.8 Other external cause status
CPT/HCPCS: 99283

== ENCOUNTER 2023-11-09 20:21 | Emergency (ER) | payer MEDICARE, OTHER ==
[~2023-11-09] VITALS: Ht 170.2 cm; Wt 86.4 kg
[~2023-11-09 20:21] MED LIST changes: +TRAM50TA5 PO
[2023-11-09 22:24] VITALS: BP 126/82; PULSE 92; RESP 18; TEMP 97.8; O2SAT 99
[2023-11-10] MEDS: ACETAMINOPHEN 325 MG TABLET PO ONE (00:32)
[2023-11-10] MEDS: TraMADol HCL 50 MG TABLET PO ONE (00:32)
[2023-11-10] MEDS: DICLOFENAC SODIUM 1% 100 GM GEL [4GM] TP ONE (01:07)
== END 2023-11-10 03:26 | disposition home or self-care (01) ==
LOC: EMS 20:23
DX: M25.562 Pain in left knee (principal); M25.561 Pain in right knee; F31.9 Bipolar disorder, unspecified; E78.00 Pure hypercholesterolemia, unspecified; I10 Essential (primary) hypertension; F20.9 Schizophrenia, unspecified; F17.210 Nicotine dependence, cigarettes, uncomplicated; F14.90 Cocaine use, unspecified, uncomplicated; Z98.890 Other specified postprocedural states; Z90.89 Acquired absence of other organs; Z88.6 Allergy status to analgesic agent; Z88.0 Allergy status to penicillin; Z88.8 Allergy status to other drugs, medicaments and biological substances
CPT/HCPCS: 99284; Z7502; Z7610

== ENCOUNTER 2023-11-17 15:06 | Inpatient (IN) | payer MEDICARE, MEDICAID ==
[~2023-11-17] VITALS: Ht 170.2 cm; Wt 95.9 kg
[2023-11-17] MEDS ORDERED: LURA80TA4 PO (15:31)
[2023-11-17] MEDS ORDERED: AMLO5TAB66 PO (15:31)
[2023-11-17] MEDS ORDERED: MIRT-92 PO (15:31)
[2023-11-17 17:39] LABS: BASOPHILS % (AUTO) 0.5 % (0.0-2.0); EOSINOPHILS % (AUTO) 1.3 % (1.0-6.0); HEMATOCRIT 45.1 % (36-46); HEMOGLOBIN 14.8 g/dL (12.0-16.0); LYMPHOCYTES # (AUTO) 1.8 K/uL (1.0-4.8); MEAN CORPUSCULAR HEMOGLOBIN 29.7 pg (26.0-34.0); MEAN CORPUSCULAR HGB CONC 32.8 G/dL (31.0-37.0); MEAN CORPUSCULAR VOLUME 91 fL (80-100); MONOCYTES # (AUTO) 0.6 K/uL (0.1-1.0); MONOCYTES % (AUTO) 8.3 % (2.0-9.0); NEUTROPHILS % (AUTO) 65.9 % (40.0-70.0); PLATELET COUNT (AUTO) 358 K/uL (150-450); RED BLOOD CELL COUNT(AUTO) 4.99 MIL/uL (4.00-5.20); RED CELL DISTRIBUTION WIDTH 14.5 % (11.5-14.5); WHITE BLOOD COUNT (AUTO) 7.6 K/uL (4.5-11.0)
[2023-11-17 17:46] LABS: ANION GAP 13 mmol/L (8-16); CARBON DIOXIDE 25 mmol/L (22-29); CHLORIDE 102 mmol/L (98-107); CREATININE 1.07 mg/dL (0.60-1.30); GLOMERULAR FILTR. RATE CALC > 60 mL/min (>60); GLUCOSE,RANDOM 90 mg/dL (70-110); POTASSIUM 4.1 mmol/L (3.5-5.1); SODIUM SERUM 140 mmol/L (136-145); UREA NITROGEN, BLOOD 11 mg/dL (7-18)
[2023-11-17 17:50] LABS: ALCOHOL, BLOOD (SERUM) < 3 mg/dL (0-10)
[2023-11-17 18:11] LABS: COVID AG,FIA SOURCE NASAL SWAB
[2023-11-17 18:22] LABS: ALCOHOL, URINE DRUG SCREEN NEGATIVE (NEGATIVE); AMPHET/METH SCREEN,URINE NEGATIVE (NEGATIVE); BARBITURATE SCREEN, URINE NEGATIVE (NEGATIVE); BENZODIAZEPINES SCREEN,URINE NEGATIVE (NEGATIVE); CANNABINOID SCREEN,URINE NEGATIVE (NEGATIVE); COCAINE SCREEN,URINE NEGATIVE (NEGATIVE); METHADONE SCREEN, URINE NEGATIVE (NEGATIVE); OPIATE SCREEN,URINE NEGATIVE (NEGATIVE); PHENCYCLIDINE SCREEN,URINE NEGATIVE (NEGATIVE)
[2023-11-17 18:34] LABS: SARS-COV2 (COVID) ANTIGEN,FIA Negative (Negative)
[2023-11-17] MEDS ORDERED: HALOPERIDOL 5 MG TABLET PO PRN (23:00)
[2023-11-17 23:30] VITALS: O2SAT 99
[2023-11-18 08:09] VITALS: BP 152/76; PULSE 61; RESP 16; TEMP 97.6; O2SAT 97
[2023-11-18 11:26] VITALS: BP 152/76; PULSE 61; RESP 16; TEMP 98; O2SAT 97
[2023-11-18] MEDS ORDERED: CloNIDine HCL 0.1 MG TABLET PO PRN (11:45)
[2023-11-18] MEDS ORDERED: NICOTINE 14 MG/24 HOUR PATCH TD PRN (11:45)
[2023-11-18] MEDS ORDERED: ONDANSETRON 4 MG TABLET PO PRN (11:45)
[2023-11-18] MEDS ORDERED: GuaiFENesin/D-METHORPHAN [SUGAR-FREE] 200-20MG/10 ML SYRUP UDCUP PO PRN (11:45)
[2023-11-18] MEDS ORDERED: ALBUTEROL SULFATE HFA 90 MCG/PUFF 8 GM INHALER IH PRN (11:45)
[2023-11-18] MEDS ORDERED: MAGNESIUM HYDROXIDE SUSPENSION 30 ML UDCUP PO PRN (11:45)
[2023-11-18] MEDS ORDERED: PETROLATUM,WHITE 28 GM JELLY TP PRN (11:45)
[2023-11-18 13:16] VITALS: RESP 16
[2023-11-18] MEDS: ACETAMINOPHEN 325 MG TABLET PO PRN (13:16)
[2023-11-18] MEDS: AmLODIPine BESYLATE 5 MG TABLET PO SCH (13:16)
[2023-11-18 14:16] VITALS: RESP 16
[2023-11-18] MEDS: LURASIDONE HCL 80 MG TABLET PO SCH (14:53)
[2023-11-18 17:50] VITALS: BP 156/83; PULSE 73; RESP 17; TEMP 97.5; O2SAT 98
[2023-11-18 20:13] VITALS: BP 145/80; PULSE 63; RESP 18; TEMP 98
[2023-11-18] MEDS: MIRTAZAPINE 15 MG TABLET PO SCH (20:47)
[2023-11-18] MEDS: ATORVASTATIN CALCIUM 40 MG TABLET PO SCH (20:47)
[2023-11-19 08:40] VITALS: BP 172/95; PULSE 91; RESP 17; TEMP 97.3; O2SAT 97
[2023-11-19 08:50] LABS: HEMOGLOBIN A1C 5.8 % (3.8-5.6)
[2023-11-19] MEDS ORDERED: GuaiFENesin/D-METHORPHAN [SUGAR-FREE] 200-20MG/10 ML SYRUP UDCUP PO PRN (09:00)
[2023-11-19] MEDS ORDERED: CloNIDine HCL 0.1 MG TABLET PO PRN ×2 (09:00→14:45)
[2023-11-19] MEDS ORDERED: DOCUSATE SODIUM 100 MG CAPSULE PO PRN ×2 (09:00→14:45)
[2023-11-19] MEDS ORDERED: PETROLATUM,WHITE 28 GM JELLY TP PRN (09:00)
[2023-11-19] MEDS ORDERED: ONDANSETRON 4 MG TABLET PO PRN (09:00)
[2023-11-19] MEDS ORDERED: ALBUTEROL SULFATE HFA 90 MCG/PUFF 8 GM INHALER IH PRN (09:00)
[2023-11-19] MEDS ORDERED: NICOTINE 14 MG/24 HOUR PATCH TD PRN ×2 (09:00→14:45)
[2023-11-19] MEDS ORDERED: MAGNESIUM HYDROXIDE SUSPENSION 30 ML UDCUP PO PRN (09:00)
[2023-11-19] MEDS ORDERED: MAG HYDROX/ALUMINUM HYD/SIMETH ES 30 ML SUSPENSION UDCUP PO PRN (09:00)
[2023-11-19] MEDS ORDERED: ACETAMINOPHEN 325 MG TABLET PO PRN ×2 (09:00→14:45)
[2023-11-19 09:12] LABS: CHOL/HDL RATIO 3.4 (3.9-5.7); THYROID STIMULATING HORMONE 0.76 uIU/mL (0.36-3.74)
[2023-11-19] MEDS: MAG HYDROX/ALUMINUM HYD/SIMETH ES 30 ML SUSPENSION UDCUP PO PRN (10:05)
[2023-11-19 10:27] VITALS: RESP 17
[2023-11-19 11:27] VITALS: RESP 16
[2023-11-19 12:28] VITALS: BP 160/100; RESP 16
[2023-11-19] MEDS ORDERED: LOPERAMIDE HCL 2 MG CAPSULE PO PRN (14:45)
[2023-11-19 20:28] VITALS: BP 155/87; PULSE 71; RESP 17; TEMP 98.8
[2023-11-20 08:15] VITALS: BP 154/75; PULSE 75; RESP 17; TEMP 97.5; O2SAT 98
[2023-11-20 21:30] VITALS: BP 150/86; PULSE 85; RESP 18; TEMP 97.6; O2SAT 100
[2023-11-21 08:51] LABS: APPEARANCE,URINE HAZY (CLEAR); BILIRUBIN,URINE NEGATIVE (NEGATIVE); COLOR,URINE LIGHT YELLOW (YELLOW); GLUCOSE, URINE (UA) NEGATIVE (NEGATIVE); KETONES,URINE NEGATIVE (NEGATIVE); LEUKOCYTE ESTERASE ,URINE LARGE (NEGATIVE); NITRATE,URINE POSITIVE (NEGATIVE); OCCULT BLOOD,URINE TRACE (NEGATIVE); PROTEIN,URINE TRACE mg/dL (NEGATIVE); SPECIFIC GRAVITIY, URINE 1.012 (1.003-1.030); UROBILINOGEN,URINE <=1.0 mg/dL (<=1.0)
[2023-11-21] MEDS: ACETAMINOPHEN 325 MG TABLET PO PRN (08:57)
[2023-11-21 09:05] LABS: BACTERIA,URINE Moderate /HPF (None Seen); RBC,URINE None Seen /HPF (0-2)
[2023-11-21 09:06] LABS: SQUAMOUS EPITHELIAL CELL,UR Few /LPF (None Seen)
[2023-11-21 11:20] VITALS: BP 145/76; PULSE 81; RESP 17; TEMP 97.5; O2SAT 97
[2023-11-21] MEDS: CIPROFLOXACIN HCL 250 MG TABLET PO SCH (16:42)
[2023-11-21 20:33] VITALS: BP 138/83; PULSE 70; RESP 18; TEMP 98; O2SAT 99
[2023-11-21] MEDS: ZOLPIDEM TARTRATE 10 MG TABLET PO PRN (21:49)
[2023-11-22 08:50] LABS: BASOPHILS % (AUTO) 0.4 % (0.0-2.0); EOSINOPHILS % (AUTO) 2.6 % (1.0-6.0); HEMATOCRIT 39.1 % (36-46); HEMOGLOBIN 12.9 g/dL (12.0-16.0); LYMPHOCYTES # (AUTO) 1.6 K/uL (1.0-4.8); LYMPHOCYTES % (AUTO) 32.7 % (22.0-44.0); MEAN CORPUSCULAR HEMOGLOBIN 29.7 pg (26.0-34.0); MEAN CORPUSCULAR HGB CONC 32.9 G/dL (31.0-37.0); MEAN CORPUSCULAR VOLUME 90 fL (80-100); MONOCYTES # (AUTO) 0.6 K/uL (0.1-1.0); MONOCYTES % (AUTO) 12.8 % (2.0-9.0); NEUTROPHILS # (AUTO) 2.5 K/uL (1.8-7.7); NEUTROPHILS % (AUTO) 51.5 % (40.0-70.0); PLATELET COUNT (AUTO) 342 K/uL (150-450); RED BLOOD CELL COUNT(AUTO) 4.34 MIL/uL (4.00-5.20); RED CELL DISTRIBUTION WIDTH 14.2 % (11.5-14.5); WHITE BLOOD COUNT (AUTO) 4.8 K/uL (4.5-11.0)
[2023-11-22 09:15] LABS: ALANINE AMINOTRANSFERASE 11 U/L (12-78); ALBUMIN 2.7 g/dL (3.4-5.0); ALKALINE PHOSPHATASE 114 U/L (46-116); ANION GAP 10 mmol/L (8-16); ASPARTATE AMINOTRANSFERASE 12 U/L (15-37); BILIRUBIN,TOTAL 0.4 mg/dL (0.1-1.0); CALCIUM, TOTAL 9.2 mg/dL (8.8-10.5); CARBON DIOXIDE 25 mmol/L (22-29); CHLORIDE 104 mmol/L (98-107); CHOL/HDL RATIO 2.3 (3.9-5.7); CHOLESTEROL 117 mg/dL (131-200); CREATININE 0.85 mg/dL (0.60-1.30); GLOMERULAR FILTR. RATE CALC > 60 mL/min (>60); GLUCOSE,RANDOM 90 mg/dL (70-110); HDL CHOLESTEROL 50 mg/dL (40-60); LDL CHOL (CALC.) 59 mg/dL (0-130); POTASSIUM 4.3 mmol/L (3.5-5.1); SODIUM SERUM 139 mmol/L (136-145); THYROID STIMULATING HORMONE 1.15 uIU/mL (0.36-3.74); TOTAL PROTEIN, SERUM 6.6 g/dL (6.4-8.2); TRIGLYCERIDES 38 mg/dL (15-150); UREA NITROGEN, BLOOD 28 mg/dL (7-18)
[2023-11-22 09:29] LABS: HEMOGLOBIN A1C 5.9 % (3.8-5.6)
[2023-11-22 15:04] VITALS: BP 136/73; PULSE 90; RESP 17; TEMP 96.7; O2SAT 95
[2023-11-22 20:59] VITALS: BP 141/83; PULSE 90; RESP 18; TEMP 97.3; O2SAT 97
[2023-11-23 10:39] VITALS: BP 125/69; PULSE 80; RESP 17; TEMP 96.6; O2SAT 95
[2023-11-23] MEDS: MAG HYDROX/ALUMINUM HYD/SIMETH ES 30 ML SUSPENSION UDCUP PO PRN (12:06)
[2023-11-23 20:22] VITALS: BP 163/78; PULSE 87; RESP 17; TEMP 98.7; O2SAT 97
[2023-11-24 08:50] VITALS: BP 133/69; PULSE 66; RESP 16; TEMP 97.2; O2SAT 94
[2023-11-24 21:28] VITALS: BP 135/74; PULSE 88; RESP 17; TEMP 97.2; O2SAT 98
[2023-11-25 08:30] VITALS: BP 144/76; PULSE 73; RESP 17; TEMP 97.4; O2SAT 94
[2023-11-25 16:34] VITALS: RESP 17
[2023-11-25 17:34] VITALS: RESP 16
[2023-11-25 23:45] VITALS: BP 136/81; PULSE 70; RESP 18; TEMP 97.8
[2023-11-26 08:13] VITALS: BP 135/75; PULSE 82; RESP 16; TEMP 98.2
[2023-11-26 09:06] LABS: APPEARANCE,URINE TURBID (CLEAR); BILIRUBIN,URINE NEGATIVE (NEGATIVE); COLOR,URINE LIGHT ORANGE (YELLOW); GLUCOSE, URINE (UA) NEGATIVE (NEGATIVE); KETONES,URINE NEGATIVE (NEGATIVE); LEUKOCYTE ESTERASE ,URINE NEGATIVE (NEGATIVE); NITRATE,URINE NEGATIVE (NEGATIVE); OCCULT BLOOD,URINE NEGATIVE (NEGATIVE); PH,URINE 5.5 (5.0-8.0); PROTEIN,URINE TRACE mg/dL (NEGATIVE); SPECIFIC GRAVITIY, URINE 1.027 (1.003-1.030); UROBILINOGEN,URINE <=1.0 mg/dL (<=1.0)
[2023-11-26 09:08] LABS: PH,URINE DRUG SCREEN 5.5 (5.0-8.0)
[2023-11-26 09:14] LABS: ALCOHOL, URINE DRUG SCREEN NEGATIVE (NEGATIVE); AMPHET/METH SCREEN,URINE NEGATIVE (NEGATIVE); BARBITURATE SCREEN, URINE NEGATIVE (NEGATIVE); BENZODIAZEPINES SCREEN,URINE NEGATIVE (NEGATIVE); CANNABINOID SCREEN,URINE NEGATIVE (NEGATIVE); COCAINE SCREEN,URINE NEGATIVE (NEGATIVE); METHADONE SCREEN, URINE NEGATIVE (NEGATIVE); OPIATE SCREEN,URINE NEGATIVE (NEGATIVE); PHENCYCLIDINE SCREEN,URINE NEGATIVE (NEGATIVE)
[2023-11-26 16:33] VITALS: RESP 18
[2023-11-26 17:33] VITALS: RESP 18
[2023-11-26 20:47] VITALS: BP 141/77; PULSE 82; RESP 18; TEMP 97.5; O2SAT 98
[2023-11-27 11:40] VITALS: BP 160/83; PULSE 98; RESP 19; TEMP 97.7; O2SAT 100
[2023-11-27 19:19] VITALS: BP 135/59; PULSE 73; RESP 20; TEMP 98.2; O2SAT 95
[2023-11-27 20:04] VITALS: BP 135/59; PULSE 73; RESP 20; TEMP 98.2; O2SAT 95
[2023-11-28 08:25] VITALS: BP 127/82; PULSE 95; RESP 18; TEMP 98.1; O2SAT 100
[2023-11-28 21:05] VITALS: BP 150/79; PULSE 77; RESP 18; TEMP 97.8; O2SAT 95
[2023-11-29 16:19] VITALS: BP 138/72; PULSE 84; RESP 17; TEMP 97.6; O2SAT 97
[2023-11-29 20:08] VITALS: BP 150/84; PULSE 78; RESP 18; TEMP 98; O2SAT 97
[2023-11-29 20:22] VITALS: BP 144/82; PULSE 82; RESP 18; TEMP 97.8; O2SAT 98
[2023-11-29] MEDS: LORazepam 2 MG TABLET PO PRN (20:22)
[2023-11-29 21:22] VITALS: TEMP 98
[2023-11-30 08:10] VITALS: BP 130/84; PULSE 98; RESP 17; TEMP 97.6; O2SAT 98
[2023-11-30 20:35] VITALS: BP 136/87; PULSE 85; RESP 17; TEMP 97.5; O2SAT 97
[2023-12-01 09:40] VITALS: BP 142/84; PULSE 80; RESP 17; TEMP 97.2; O2SAT 96
[2023-12-01 20:56] VITALS: BP 128/75; PULSE 88; RESP 18; TEMP 96.8; O2SAT 97
[2023-12-02 08:10] VITALS: BP 132/78; PULSE 95; RESP 17; TEMP 97.7; O2SAT 96
[2023-12-02] MEDS: PETROLATUM,WHITE 28 GM JELLY TP PRN (10:54)
[2023-12-02 20:00] VITALS: BP 138/82; PULSE 95; RESP 16; TEMP 98.9; O2SAT 97
[2023-12-03 08:02] VITALS: BP 134/89; PULSE 88; RESP 15; TEMP 97.9
[2023-12-03 16:31] VITALS: BP 154/79; PULSE 99; RESP 16; TEMP 98; O2SAT 99
[2023-12-03 17:41] VITALS: BP 149/86; PULSE 95; RESP 18; TEMP 97.7; O2SAT 95
[2023-12-03 23:44] VITALS: BP 146/84; PULSE 92; RESP 17; TEMP 98; O2SAT 96
[2023-12-04 08:03] VITALS: BP 116/61; PULSE 84; RESP 16; TEMP 97.4; O2SAT 97
[2023-12-05 00:36] VITALS: BP 150/94; PULSE 95; RESP 18; TEMP 98.5; O2SAT 98
[2023-12-05 08:00] VITALS: BP 143/88; PULSE 81; RESP 18; TEMP 97.9; O2SAT 99
[2023-12-05 20:31] VITALS: BP 143/86; PULSE 90; RESP 18; TEMP 96.5; O2SAT 96
[2023-12-06 08:26] VITALS: BP 116/79; PULSE 85; RESP 17; TEMP 98; O2SAT 100
[2023-12-06 20:08] VITALS: BP 134/82; PULSE 77; RESP 18; TEMP 97.6; O2SAT 97
[2023-12-07 09:06] VITALS: BP 133/81; PULSE 88; RESP 14; TEMP 96.9; O2SAT 96
[2023-12-07 21:53] VITALS: BP 144/89; PULSE 92; RESP 18; TEMP 97.5; O2SAT 97
[2023-12-08 08:03] VITALS: BP 137/79; PULSE 87; RESP 16; TEMP 97.1; O2SAT 96
[2023-12-08 20:53] VITALS: BP 146/84; PULSE 78; RESP 17; TEMP 97.4; O2SAT 97
[2023-12-09 08:10] VITALS: BP 150/80; PULSE 79; RESP 16; TEMP 97.6; O2SAT 96
[2023-12-09 20:17] VITALS: BP 139/80; PULSE 76; RESP 16; TEMP 97.1; O2SAT 98
[2023-12-10 08:23] VITALS: BP 144/77; PULSE 75; RESP 19; TEMP 97.7; O2SAT 100
[2023-12-10 20:42] VITALS: BP 135/77; PULSE 77; RESP 18; TEMP 97.3; O2SAT 97
[2023-12-11 08:21] VITALS: BP 133/75; PULSE 85; RESP 18; TEMP 97.9; O2SAT 100
[2023-12-11 23:39] VITALS: BP 130/72; PULSE 76; RESP 18; TEMP 97.8; O2SAT 99
[2023-12-12 13:27] VITALS: BP 121/60; PULSE 88; RESP 16; TEMP 98.2; O2SAT 100
[2023-12-12 23:30] VITALS: BP 136/79; PULSE 85; RESP 16; TEMP 97.9; O2SAT 98
[2023-12-13 09:33] VITALS: RESP 18
[2023-12-13 11:10] VITALS: BP 139/97; PULSE 82; RESP 18; TEMP 97.9; O2SAT 97
[2023-12-13 15:27] VITALS: BP 137/85; PULSE 96
[2023-12-13 21:36] VITALS: BP 146/82; PULSE 89; RESP 18; TEMP 97.5; O2SAT 96
[2023-12-14 08:14] VITALS: BP 132/78; PULSE 74; RESP 17; TEMP 98; O2SAT 96
[2023-12-14 20:00] VITALS: BP 143/82; PULSE 80; RESP 18; TEMP 98.4; O2SAT 99
[2023-12-15 08:19] VITALS: BP 130/85; PULSE 85; RESP 17; TEMP 97.3; O2SAT 98
[2023-12-15 20:02] VITALS: BP 138/77; PULSE 73; RESP 18; TEMP 97.5; O2SAT 97
[2023-12-15 21:11] VITALS: BP 152/98; PULSE 83; RESP 18; TEMP 97.3; O2SAT 96
[2023-12-16 08:05] VITALS: BP 140/88; PULSE 80; RESP 16; TEMP 97.8; O2SAT 100
[2023-12-16 20:02] VITALS: BP 140/80; PULSE 72; RESP 17; TEMP 97.5; O2SAT 99
[2023-12-17 08:17] VITALS: BP 132/80; PULSE 79; RESP 18; TEMP 97.1; O2SAT 95
[2023-12-17 20:01] VITALS: BP 131/85; PULSE 69; RESP 16; TEMP 97; O2SAT 98
[2023-12-18 07:55] VITALS: BP 131/83; PULSE 93; RESP 18; TEMP 97.8; O2SAT 97
[2023-12-18 08:01] VITALS: BP 131/83; PULSE 93; RESP 18; TEMP 97.8; O2SAT 97
[2023-12-18 20:11] VITALS: BP 144/89; PULSE 83; RESP 18; TEMP 98; O2SAT 96
[2023-12-19 08:56] VITALS: BP 142/92; PULSE 96; RESP 18; TEMP 96.7; O2SAT 97
[2023-12-19 20:03] VITALS: BP 139/78; PULSE 76; RESP 17; TEMP 97.6; O2SAT 97
[2023-12-20 07:43] VITALS: BP 147/97; PULSE 97; RESP 17; TEMP 97.2; O2SAT 97
[2023-12-20 08:32] VITALS: TEMP 97.2
[2023-12-20 20:26] VITALS: BP 135/76; PULSE 73; RESP 18; TEMP 97.6; O2SAT 98
[2023-12-21 02:13] VITALS: BP 154/81; PULSE 73; RESP 17; TEMP 97.2; O2SAT 98
[2023-12-21 08:00] VITALS: BP 143/93; PULSE 98; RESP 18; TEMP 96.4; O2SAT 96
[2023-12-21 20:58] VITALS: BP 142/89; PULSE 84; RESP 18; TEMP 98; O2SAT 97
[2023-12-22 08:26] VITALS: BP 140/88; PULSE 90; RESP 18; TEMP 97.4; O2SAT 96
[2023-12-22 20:25] VITALS: BP 147/84; PULSE 74; RESP 18; TEMP 98.3; O2SAT 97
[2023-12-23 08:06] VITALS: BP_SYST 142; BP_SYST 152; BP_DIAS 81; BP_DIAS 89; PULSE 74; PULSE 77; RESP 17; TEMP 97.9; O2SAT 97
[2023-12-23] MEDS: BACITRACIN 28 GM OINTMENT TP SCH (16:14)
[2023-12-23 20:33] VITALS: BP 146/89; PULSE 79; RESP 18; TEMP 98.1; O2SAT 95
[2023-12-24 08:13] VITALS: BP 138/85; PULSE 71; RESP 17; TEMP 98.1; O2SAT 99
[2023-12-24 20:03] VITALS: BP 129/73; PULSE 76; RESP 18; TEMP 98.2; O2SAT 96
[2023-12-24] MEDS: ZOLPIDEM TARTRATE 10 MG TABLET PO PRN (21:34)
[2023-12-25] MEDS: LORazepam 2 MG TABLET PO PRN (01:25)
[2023-12-25 08:50] VITALS: BP 134/78; PULSE 99; RESP 18; TEMP 97.7; O2SAT 97
[2023-12-25 15:28] VITALS: BP 159/99; PULSE 100; RESP 20; TEMP 97.1; O2SAT 99
[2023-12-25 16:03] VITALS: BP 159/99; RESP 18; O2SAT 98
[2023-12-25 20:28] VITALS: BP 138/82; PULSE 100; RESP 18; TEMP 98.1; O2SAT 100
[2023-12-25] MEDS: MIRTAZAPINE 30 MG TABLET PO SCH (20:34)
[2023-12-26 08:02] VITALS: BP 145/98; PULSE 100; RESP 18; TEMP 97.6; O2SAT 97
[2023-12-26] MEDS: AmLODIPine BESYLATE 5 MG TABLET PO SCH (08:50)
[2023-12-26 13:47] VITALS: RESP 18
[2023-12-26 14:47] VITALS: RESP 18
[2023-12-26 20:05] VITALS: BP 132/83; PULSE 100; RESP 18; TEMP 98.7
[2023-12-26 21:59] VITALS: RESP 18
[2023-12-26 22:57] VITALS: RESP 18
[2023-12-27 01:49] VITALS: BP 140/92; PULSE 100; RESP 18; TEMP 98
[2023-12-27 10:20] VITALS: RESP 18
[2023-12-27 20:17] VITALS: RESP 18
[2023-12-27 20:22] VITALS: BP 150/84; PULSE 97; RESP 18; TEMP 98
[2023-12-27 22:17] VITALS: RESP 18
[2023-12-28] MEDS: GuaiFENesin/D-METHORPHAN [SUGAR-FREE] 200-20MG/10 ML SYRUP UDCUP PO PRN (01:06)
[2023-12-28 01:21] VITALS: BP 159/96; PULSE 98; RESP 17; TEMP 98.2
[2023-12-28 08:12] VITALS: BP 137/77; PULSE 110; RESP 18; TEMP 98.5
[2023-12-28] MEDS: ONDANSETRON 4 MG TABLET PO PRN (10:26)
[2023-12-28 16:54] VITALS: RESP 18
[2023-12-28 17:54] VITALS: RESP 18
[2023-12-28 21:33] VITALS: BP 135/80; PULSE 99; RESP 18; TEMP 98.5; O2SAT 98
[2023-12-29 01:15] VITALS: BP 132/82; PULSE 95; RESP 16; TEMP 98.2; O2SAT 98
[2023-12-29 08:00] VITALS: RESP 16; O2SAT 98
[2023-12-29 09:55] VITALS: BP 139/91; PULSE 94; RESP 16; TEMP 98.6; O2SAT 98
[2023-12-29 19:18] VITALS: BP 132/86; PULSE 113; RESP 17; TEMP 97; O2SAT 98
[2023-12-29 20:00] VITALS: BP 132/86; PULSE 103; RESP 17; TEMP 97; O2SAT 98
[2023-12-29 20:18] VITALS: RESP 18; O2SAT 97
[2023-12-29] MEDS: ALBUTEROL SULFATE HFA 90 MCG/PUFF 8 GM INHALER IH PRN (22:19)
[2023-12-30] VITALS (8 sets, daily range): BP systolic 128–154; BP diastolic 85–95; PULSE 98–105; RESP 16–20; TEMP 97.3–97.7; O2SAT 98–100
[2023-12-30] MEDS: INFLUENZA VIRUS VACCINE TVS (6MO+) 2024-25/PF 45 MCG/0.5 ML SYRINGE IM. ONE (08:15)
[2023-12-30] MEDS: AmLODIPine BESYLATE 2.5 MG TABLET PO ONE (10:18)
[2023-12-31] VITALS (9 sets, daily range): BP systolic 134–147; BP diastolic 78–101; PULSE 94–133; RESP 16–18; TEMP 97.1–97.8; O2SAT 96–100
[2023-12-31] MEDS: AmLODIPine BESYLATE 5 MG TABLET PO SCH (08:07)
[2024-01-01 03:46] VITALS: BP 130/84; PULSE 75; RESP 18; TEMP 97.8; O2SAT 100
[2024-01-01 08:22] VITALS: BP 137/82; PULSE 92; RESP 18; TEMP 97.7; O2SAT 99
[2024-01-02 04:52] VITALS: BP 133/77; PULSE 99; RESP 18; TEMP 97.5; O2SAT 97
[2024-01-02 09:50] VITALS: BP 138/86; PULSE 98; RESP 17; TEMP 97.9; O2SAT 97
[2024-01-02 20:04] VITALS: BP 135/87; PULSE 90; RESP 18; TEMP 97.7; O2SAT 98
[2024-01-03 00:07] VITALS: BP 145/98; PULSE 103; RESP 18; TEMP 98; O2SAT 99
[2024-01-03 08:55] VITALS: BP 135/86; PULSE 96; RESP 18; TEMP 97.6; O2SAT 96
[2024-01-03] MEDS: MAGNESIUM HYDROXIDE SUSPENSION 30 ML UDCUP PO PRN (14:44)
[2024-01-03] MEDS ORDERED: ONDANSETRON HCL 4 MG/2 ML VIAL IM PRN (16:45)
[2024-01-03] MEDS: OMEPRAZOLE 20 MG CAPSULE PO SCH (17:05)
[2024-01-04 01:17] VITALS: BP 140/96; PULSE 99; RESP 20; TEMP 97.8; O2SAT 97
[2024-01-04 08:44] VITALS: BP 146/91; PULSE 99; RESP 18; TEMP 97.7; O2SAT 100
[2024-01-04 09:45] VITALS: BP 130/86; PULSE 100; RESP 18; TEMP 97.1; O2SAT 100
[2024-01-04 20:19] VITALS: BP 146/91; PULSE 99; RESP 18; TEMP 97.7; O2SAT 100
[2024-01-05 09:18] VITALS: BP 145/80; PULSE 97; RESP 18; TEMP 97.4; O2SAT 100
[2024-01-05 09:26] LABS: APPEARANCE,URINE TURBID (CLEAR); BILIRUBIN,URINE NEGATIVE (NEGATIVE); COLOR,URINE YELLOW (YELLOW); GLUCOSE, URINE (UA) NEGATIVE (NEGATIVE); KETONES,URINE NEGATIVE (NEGATIVE); LEUKOCYTE ESTERASE ,URINE NEGATIVE (NEGATIVE); NITRATE,URINE NEGATIVE (NEGATIVE); OCCULT BLOOD,URINE NEGATIVE (NEGATIVE); PH,URINE 8.5 (5.0-8.0); PROTEIN,URINE 300-600,SEE CONFIRM mg/dL (NEGATIVE); SPECIFIC GRAVITIY, URINE 1.024 (1.003-1.030); UROBILINOGEN,URINE <=1.0 mg/dL (<=1.0)
[2024-01-05 10:15] LABS: AMORPHOUS SEDIMENT,UR Many /LPF (None Seen); BACTERIA,URINE None Seen /HPF (None Seen); RBC,URINE None Seen /HPF (0-2); SULFOSALICYLIC ACID,URINE 3+ (Negative); TRIPLE PHOSPHATE CRYSTAL,UR Rare /LPF (None Seen); WBC,URINE None Seen /HPF (0-5)
[2024-01-06 00:21] VITALS: BP 165/91; PULSE 101; RESP 18; TEMP 97.4; O2SAT 97
[2024-01-06 08:03] VITALS: BP 146/88; PULSE 95; RESP 17; TEMP 97.7; O2SAT 95
[2024-01-06 20:49] VITALS: BP 143/76; PULSE 100; RESP 19; TEMP 97.7; O2SAT 98
[2024-01-07 02:35] VITALS: RESP 18
[2024-01-07 03:36] VITALS: RESP 18
[2024-01-07 09:26] VITALS: BP 133/84; PULSE 100; RESP 16; TEMP 97.2
[2024-01-07 17:20] VITALS: RESP 18
[2024-01-07 18:20] VITALS: RESP 17
[2024-01-07 20:07] VITALS: BP 138/81; PULSE 85; RESP 16; TEMP 99.3; O2SAT 97
[2024-01-08 05:25] VITALS: RESP 18
[2024-01-08 06:27] VITALS: RESP 18
[2024-01-08 10:58] VITALS: BP 140/77; PULSE 90; RESP 18; TEMP 97.9; O2SAT 97
[2024-01-08 11:51] VITALS: RESP 19
[2024-01-08 12:51] VITALS: RESP 18
[2024-01-08 20:06] VITALS: BP 140/81; PULSE 75; RESP 17; TEMP 97.1
[2024-01-09 08:03] VITALS: BP 133/84; PULSE 78; RESP 16; TEMP 98.2; O2SAT 97
[2024-01-09 11:12] VITALS: RESP 18
[2024-01-09 12:12] VITALS: RESP 16
[2024-01-09 17:13] VITALS: RESP 18
[2024-01-09 18:13] VITALS: RESP 18
[2024-01-09 20:09] VITALS: BP 157/79; PULSE 87; RESP 18; TEMP 96.7; O2SAT 100
[2024-01-10 08:24] VITALS: BP 134/79; PULSE 90; RESP 18; TEMP 97.9; O2SAT 100
[2024-01-10 08:50] VITALS: RESP 18; O2SAT 100
[2024-01-10 20:12] VITALS: BP 137/79; PULSE 99; RESP 18; TEMP 97.7; O2SAT 99
[2024-01-11 08:16] VITALS: BP 145/82; PULSE 98; RESP 18; TEMP 97.9; O2SAT 98
[2024-01-11 16:05] VITALS: RESP 17
[2024-01-11 17:05] VITALS: RESP 17
[2024-01-11 20:42] VITALS: BP 144/79; PULSE 102; RESP 18; TEMP 97.2; O2SAT 98
[2024-01-12] VITALS (7 sets, daily range): BP systolic 125–149; BP diastolic 65–92; PULSE 96–135; RESP 17–19; TEMP 97.2–98.5; O2SAT 95–98
[2024-01-12] MEDS: PANTOPRAZOLE SODIUM 40 MG DR TABLET PO SCH (08:12)
[2024-01-13] MEDS: TUBERCULIN, PURIFIED PROTEIN DERIVATIVE 5 TU/0.1 ML SYRINGE ID ONE (05:19)
[2024-01-13 06:46] VITALS: RESP 18; O2SAT 97
[2024-01-13 08:15] VITALS: BP 129/82; PULSE 98; RESP 18; TEMP 98; O2SAT 99
[2024-01-13 20:47] VITALS: BP 142/86; PULSE 85; RESP 18; TEMP 97.8; O2SAT 99
[2024-01-14 08:21] VITALS: BP 145/79; PULSE 98; RESP 18; TEMP 96.8; O2SAT 98
[2024-01-14 15:22] VITALS: RESP 17
[2024-01-14 16:22] VITALS: RESP 16
[2024-01-14 20:03] VITALS: BP 140/81; PULSE 102; RESP 18; TEMP 98.8; O2SAT 97
[2024-01-15 08:14] VITALS: BP 141/78; PULSE 90; RESP 18; TEMP 97.2; O2SAT 100
[2024-01-15 17:10] VITALS: RESP 18
[2024-01-15 17:13] VITALS: RESP 18
[2024-01-15 18:17] VITALS: RESP 18
[2024-01-15 20:09] VITALS: BP 133/84; PULSE 103; RESP 18; TEMP 98.3; O2SAT 97
[2024-01-16 08:06] VITALS: BP 122/88; PULSE 110; RESP 17; TEMP 98.4; O2SAT 97
[2024-01-16 17:10] VITALS: RESP 18
[2024-01-16 18:10] VITALS: RESP 18
[2024-01-16 20:12] VITALS: BP 158/91; PULSE 110; RESP 18; TEMP 98.4; O2SAT 99
[2024-01-17 08:08] VITALS: BP 149/92; PULSE 100; RESP 17; TEMP 98.3; O2SAT 97
[2024-01-17 16:35] VITALS: RESP 18
[2024-01-17 17:37] VITALS: RESP 18
[2024-01-17 20:19] VITALS: BP 157/92; PULSE 100; RESP 17; TEMP 97.6; O2SAT 98
[2024-01-18 08:18] VITALS: BP 131/84; PULSE 107; RESP 16; TEMP 97.6; O2SAT 98
[2024-01-18 08:37] VITALS: RESP 16
[2024-01-18 09:37] VITALS: RESP 18
[2024-01-18 16:30] VITALS: RESP 18
[2024-01-18] MEDS: FUROSEMIDE 20 MG TABLET PO ONE (17:11)
[2024-01-18 20:02] VITALS: BP 139/83; PULSE 95; RESP 18; TEMP 97.9; O2SAT 98
[2024-01-19 08:07] VITALS: BP 137/74; PULSE 109; RESP 16; TEMP 97.6; O2SAT 98
[2024-01-19 14:56] VITALS: RESP 17
[2024-01-19 15:56] VITALS: RESP 16
[2024-01-19 20:11] VITALS: BP 137/74; PULSE 94; RESP 17; TEMP 97.8; O2SAT 98
[2024-01-20 04:38] VITALS: RESP 18
[2024-01-20 09:30] VITALS: BP 139/81; PULSE 80; RESP 18; TEMP 98.4; O2SAT 100
[2024-01-20 11:09] VITALS: RESP 17
[2024-01-20 12:09] VITALS: RESP 16
[2024-01-20 20:57] VITALS: BP 133/74; PULSE 99; RESP 18; TEMP 98.1; O2SAT 99
[2024-01-21 08:07] VITALS: BP 148/93; PULSE 96; RESP 18; TEMP 98; O2SAT 98
[2024-01-21 08:47] LABS: BASOPHILS % (AUTO) 0.6 % (0.0-2.0); EOSINOPHILS % (AUTO) 1.5 % (1.0-6.0); HEMATOCRIT 35.5 % (36-46); HEMOGLOBIN 11.5 g/dL (12.0-16.0); LYMPHOCYTES # (AUTO) 1.4 K/uL (1.0-4.8); LYMPHOCYTES % (AUTO) 20.8 % (22.0-44.0); MEAN CORPUSCULAR HEMOGLOBIN 29.6 pg (26.0-34.0); MEAN CORPUSCULAR HGB CONC 32.3 G/dL (31.0-37.0); MEAN CORPUSCULAR VOLUME 92 fL (80-100); MONOCYTES # (AUTO) 0.5 K/uL (0.1-1.0); MONOCYTES % (AUTO) 7.7 % (2.0-9.0); NEUTROPHILS # (AUTO) 4.8 K/uL (1.8-7.7); NEUTROPHILS % (AUTO) 69.4 % (40.0-70.0); PLATELET COUNT (AUTO) 420 K/uL (150-450); RED BLOOD CELL COUNT(AUTO) 3.87 MIL/uL (4.00-5.20); RED CELL DISTRIBUTION WIDTH 14.2 % (11.5-14.5); WHITE BLOOD COUNT (AUTO) 6.9 K/uL (4.5-11.0)
[2024-01-21 09:01] LABS: ANION GAP 5 mmol/L (8-16); CALCIUM, TOTAL 9.8 mg/dL (8.8-10.5); CARBON DIOXIDE 28 mmol/L (22-29); CHLORIDE 103 mmol/L (98-107); CREATININE 0.92 mg/dL (0.60-1.30); GLOMERULAR FILTR. RATE CALC > 60 mL/min (>60); GLUCOSE,RANDOM 113 mg/dL (70-110); POTASSIUM 4.3 mmol/L (3.5-5.1); SODIUM SERUM 136 mmol/L (136-145); UREA NITROGEN, BLOOD 18 mg/dL (7-18)
[2024-01-21 09:04] LABS: B-TYPE NATRIURETIC PEPTIDE 18 pg/mL (0-100)
[2024-01-21 16:24] VITALS: RESP 18
[2024-01-21 17:24] VITALS: RESP 18
[2024-01-21 20:00] VITALS: BP 139/86; PULSE 98; RESP 18; TEMP 97.6; O2SAT 97
[2024-01-22 08:05] VITALS: BP 138/89; PULSE 102; RESP 18; TEMP 97.8; O2SAT 97
[2024-01-22 20:05] VITALS: BP 139/84; PULSE 100; RESP 17; TEMP 97.4; O2SAT 99
[2024-01-23 08:26] VITALS: RESP 18
[2024-01-23 09:26] VITALS: RESP 17
[2024-01-23 10:50] VITALS: BP 133/83; PULSE 107; RESP 18; TEMP 97.9; O2SAT 96
[2024-01-23 21:47] VITALS: BP 136/81; PULSE 98; RESP 18; TEMP 97.8; O2SAT 98
[2024-01-24 08:13] VITALS: BP 139/82; PULSE 96; RESP 16; TEMP 97.9; O2SAT 96
[2024-01-24 14:51] VITALS: RESP 16
[2024-01-24 15:57] VITALS: RESP 18
[2024-01-24 21:27] VITALS: BP 132/84; PULSE 98; RESP 18; TEMP 97.8
[2024-01-25 08:54] VITALS: BP 149/86; PULSE 93; RESP 19; TEMP 97.2
[2024-01-25 21:37] VITALS: BP 117/60; PULSE 97; RESP 18; TEMP 98.1
[2024-01-26 08:07] VITALS: BP 132/77; PULSE 79; RESP 16; TEMP 97; O2SAT 99
[2024-01-26] MEDS ORDERED: AMLO-257 PO (09:30)
[2024-01-26] MEDS ORDERED: ATOR40TA71 PO (09:30)
[2024-01-26] MEDS ORDERED: LURA80TA2 PO ×2 (09:30→21:34)
[2024-01-26] MEDS ORDERED: MIRT-149 PO (09:30)
[2024-01-26] MEDS ORDERED: PANT-31 PO (09:30)
[2024-01-26 11:05] VITALS: BP 136/80; PULSE 75; RESP 18; TEMP 97.3; O2SAT 99
[2024-01-26 12:04] VITALS: BP 132/77; PULSE 82; RESP 16; TEMP 97.3; O2SAT 99
[2024-01-26] MEDS ORDERED: MIRT-89 PO (21:34)
[2024-01-26] MEDS ORDERED: DICL100G60 TP (21:34)
[2024-01-26] MEDS ORDERED: ACET-66 PO (21:34)
[2024-01-26] MEDS ORDERED: TRAM50TA5 PO (21:34)
[2024-01-26] MEDS ORDERED: PANT40TA54 PO (21:54)
[2024-01-26] MEDS ORDERED: MIRT-93 PO (21:54)
== END 2024-01-26 12:22 | disposition home or self-care (01) | DRG 885 ==
LOC: EMS 15:06 → B2X 11-18 00:50
PROVIDERS: ADMIT Psychiatry & Neurology Psychiatry; ATTEND Psychiatry & Neurology Psychiatry
PROC: GZHZZZZ Group Psychotherapy (ICD-10-PCS; principal; 2023-11-18)
PROC: GZ56ZZZ Individual Psychotherapy, Supportive (ICD-10-PCS; 2023-11-18)
DX: F25.1 Schizoaffective disorder, depressive type (principal); R45.851 Suicidal ideations; N39.0 Urinary tract infection, site not specified; F14.90 Cocaine use, unspecified, uncomplicated; F31.9 Bipolar disorder, unspecified; F41.9 Anxiety disorder, unspecified; Z20.822 Contact with and (suspected) exposure to COVID-19; I10 Essential (primary) hypertension; G40.909 Epilepsy, unspecified, not intractable, without status epilepticus; F19.10 Other psychoactive substance abuse, uncomplicated; G47.00 Insomnia, unspecified; E78.00 Pure hypercholesterolemia, unspecified; Z79.899 Other long term (current) drug therapy; Z87.891 Personal history of nicotine dependence; Z88.0 Allergy status to penicillin; M19.90 Unspecified osteoarthritis, unspecified site
CPT/HCPCS: 80048; 80053; 80061; 80307; 81001; 81002; 81003; 83036; 83690; 83880; 84443; 85025; 87081; 87086; 87186; 87481; 97161; 97165; 97530; 97535; 99285; G0480; J3535; Q0162

== ENCOUNTER 2024-02-14 16:39 | Emergency (ER) | payer MEDICARE, MEDICAID ==
[~2024-02-14] VITALS: Ht 170.2 cm; Wt 108.0 kg
[~2024-02-14 16:39] MED LIST changes: +ACET-66 PO; -AMLO-258 PO; +AMLO5TAB66 PO; +DICL100G60 TP; -GABA-1181 PO; -LOSA-382 PO; -MIRT-149 PO; +MIRT-89 PO; +MIRT-93 PO; +PANT40TA54 PO
[2024-02-14 16:53] VITALS: TEMP 98.2
[2024-02-14] MEDS: TraMADol HCL 50 MG TABLET PO ONE (17:52)
[2024-02-14 19:12] VITALS: BP 142/79; PULSE 88; RESP 17; O2SAT 98
[2024-02-14] MEDS ORDERED: TRAM50TA5 PO (20:59)
== END 2024-02-15 00:41 | disposition home or self-care (01) ==
LOC: EMS 16:39
DX: M25.561 Pain in right knee (principal); M25.562 Pain in left knee; I10 Essential (primary) hypertension; F20.9 Schizophrenia, unspecified; F31.9 Bipolar disorder, unspecified; E78.00 Pure hypercholesterolemia, unspecified; F17.210 Nicotine dependence, cigarettes, uncomplicated; Z88.0 Allergy status to penicillin; Z88.5 Allergy status to narcotic agent; Z88.6 Allergy status to analgesic agent; Z88.8 Allergy status to other drugs, medicaments and biological substances; Z79.1 Long term (current) use of non-steroidal anti-inflammatories (NSAID); Z90.89 Acquired absence of other organs; Z79.899 Other long term (current) drug therapy
CPT/HCPCS: 99283

== ENCOUNTER 2024-02-17 02:01 | Emergency (ER) | payer MEDICARE, MEDICAID ==
[~2024-02-17] VITALS: Ht 165.1 cm; Wt 105.0 kg
[~2024-02-17 02:01] MED LIST changes: -MIRT-89 PO
[2024-02-17 02:23] VITALS: BP 115/83; PULSE 84; RESP 18; TEMP 96.5; O2SAT 100
[2024-02-17] MEDS: ACETAMINOPHEN 500 MG TABLET PO ONE (02:50)
[2024-02-17] MEDS ORDERED: ACET-3385 PO (02:52)
== END 2024-02-17 02:54 | disposition home or self-care (01) ==
LOC: EMS 02:01
DX: M25.561 Pain in right knee (principal); M25.562 Pain in left knee; I10 Essential (primary) hypertension; E78.00 Pure hypercholesterolemia, unspecified; F17.210 Nicotine dependence, cigarettes, uncomplicated; F20.9 Schizophrenia, unspecified; Z88.0 Allergy status to penicillin; Z88.5 Allergy status to narcotic agent; Z88.6 Allergy status to analgesic agent; Z88.8 Allergy status to other drugs, medicaments and biological substances; Z79.899 Other long term (current) drug therapy
CPT/HCPCS: 99282; Z7502; Z7610

== ENCOUNTER 2024-02-19 21:37 | Emergency (ER) | payer MEDICARE, MEDICAID ==
[~2024-02-19] VITALS: Ht 170.2 cm; Wt 97.7 kg
[~2024-02-19 21:37] MED LIST changes: +ACET-3385 PO
[2024-02-19 21:53] VITALS: BP 140/54; PULSE 69; RESP 16; TEMP 98.3; O2SAT 98
[2024-02-19 23:13] LABS: BASOPHILS % (AUTO) 0.4 % (0.0-2.0); EOSINOPHILS % (AUTO) 1.1 % (1.0-6.0); HEMATOCRIT 40.1 % (36-46); HEMOGLOBIN 12.9 g/dL (12.0-16.0); LYMPHOCYTES # (AUTO) 1.8 K/uL (1.0-4.8); LYMPHOCYTES % (AUTO) 36.1 % (22.0-44.0); MEAN CORPUSCULAR HEMOGLOBIN 28.8 pg (26.0-34.0); MEAN CORPUSCULAR HGB CONC 32.1 G/dL (31.0-37.0); MEAN CORPUSCULAR VOLUME 90 fL (80-100); MONOCYTES # (AUTO) 0.5 K/uL (0.1-1.0); MONOCYTES % (AUTO) 10.9 % (2.0-9.0); NEUTROPHILS # (AUTO) 2.6 K/uL (1.8-7.7); NEUTROPHILS % (AUTO) 51.5 % (40.0-70.0); PLATELET COUNT (AUTO) 306 K/uL (150-450); RED BLOOD CELL COUNT(AUTO) 4.47 MIL/uL (4.00-5.20)
[2024-02-19 23:22] LABS: ANION GAP 11 mmol/L (8-16); CALCIUM, TOTAL 10.3 mg/dL (8.8-10.5); CARBON DIOXIDE 25 mmol/L (22-29); CHLORIDE 104 mmol/L (98-107); CREATININE 0.91 mg/dL (0.60-1.30); GLOMERULAR FILTR. RATE CALC > 60 mL/min (>60); GLUCOSE,RANDOM 96 mg/dL (70-110); POTASSIUM 3.7 mmol/L (3.5-5.1); SODIUM SERUM 140 mmol/L (136-145); UREA NITROGEN, BLOOD 19 mg/dL (7-18)
[2024-02-19 23:37] LABS: COVID AG,FIA SOURCE NASAL SWAB
[2024-02-19 23:56] LABS: INFLUENZA TYPE A NEGATIVE FOR TYPE A (NEGATIVE); INFLUENZA TYPE B NEGATIVE FOR TYPE B (NEGATIVE)
[2024-02-19 23:57] LABS: SARS-COV2 (COVID) ANTIGEN,FIA Negative (Negative)
[2024-02-20 00:08] LABS: RESPIRATORY SYNCYTIAL VIRS,FIA NEGATIVE (Negative)
[2024-02-20] MEDS: TraMADol HCL 50 MG TABLET PO ONE (02:58)
== END 2024-02-20 05:00 | disposition home or self-care (01) ==
LOC: EMS 21:37
DX: M79.604 Pain in right leg (principal); M79.605 Pain in left leg; I10 Essential (primary) hypertension; E78.00 Pure hypercholesterolemia, unspecified; F20.9 Schizophrenia, unspecified; F31.9 Bipolar disorder, unspecified; F17.210 Nicotine dependence, cigarettes, uncomplicated; Z88.0 Allergy status to penicillin; Z88.5 Allergy status to narcotic agent; Z88.6 Allergy status to analgesic agent; Z88.8 Allergy status to other drugs, medicaments and biological substances; Z79.899 Other long term (current) drug therapy; Z20.822 Contact with and (suspected) exposure to COVID-19
CPT/HCPCS: 80048; 85025; 87420; 87804; 99283

== ENCOUNTER 2024-04-10 10:45 | Emergency (ER) | payer MEDICARE, MEDICAID ==
[~2024-04-10] VITALS: Ht 170.2 cm; Wt 97.7 kg
[~2024-04-10 10:45] MED LIST changes: -ACET-3385 PO; -ACET-66 PO; +AMLO-257 PO; -AMLO5TAB66 PO; +ATOR40TA71 PO; +CHOL25TA4 PO; -DICL100G60 TP; +LOSA-382 PO; -LURA80TA2 PO; -MIRT-93 PO; -PANT40TA54 PO; -TRAM50TA5 PO
[2024-04-10 11:27] VITALS: TEMP 98.9
[2024-04-10] MEDS: ACETAMINOPHEN 500 MG TABLET PO ONE (12:22)
[2024-04-10 14:04] VITALS: BP 138/88; PULSE 98; RESP 19; O2SAT 98
== END 2024-04-10 14:10 | disposition home or self-care (01) ==
LOC: EMS 10:46
DX: S00.83XA Contusion of other part of head, initial encounter (principal); I10 Essential (primary) hypertension; E78.00 Pure hypercholesterolemia, unspecified; F20.9 Schizophrenia, unspecified; F17.210 Nicotine dependence, cigarettes, uncomplicated; Z88.0 Allergy status to penicillin; Z88.5 Allergy status to narcotic agent; Z88.6 Allergy status to analgesic agent; Z88.8 Allergy status to other drugs, medicaments and biological substances; Z90.89 Acquired absence of other organs; Z79.899 Other long term (current) drug therapy; Y04.8XXA Assault by other bodily force, initial encounter; Y93.89 Activity, other specified; Y92.89 Other specified places as the place of occurrence of the external cause; Y99.8 Other external cause status
CPT/HCPCS: 70450; 70486; 72125; 99284

== ENCOUNTER 2024-04-18 18:45 | Emergency (ER) | payer MEDICARE, MEDICAID ==
[~2024-04-18] VITALS: Ht 170.2 cm; Wt 97.7 kg
[2024-04-18 19:45] VITALS: TEMP 100.1
[2024-04-18] MEDS ORDERED: SODIUM CHLORIDE 0.9% 1,000 ML IV ONE (21:00)
[2024-04-18] MEDS ORDERED: ACETAMINOPHEN 1000 MG/ISO-OSM 100 ML IV ONE (21:00)
[2024-04-18 22:10] LABS: APPEARANCE,URINE HAZY (CLEAR); BILIRUBIN,URINE NEGATIVE (NEGATIVE); COLOR,URINE YELLOW (YELLOW); GLUCOSE, URINE (UA) NEGATIVE (NEGATIVE); LEUKOCYTE ESTERASE ,URINE LARGE (NEGATIVE); NITRATE,URINE POSITIVE (NEGATIVE); OCCULT BLOOD,URINE SMALL (NEGATIVE); PROTEIN,URINE 30-70 mg/dL (NEGATIVE)
[2024-04-18 22:18] LABS: WBC,URINE 51-100 /HPF (0-5)
[2024-04-18 22:19] LABS: BACTERIA,URINE Many /HPF (None Seen); SQUAMOUS EPITHELIAL CELL,UR Few /LPF (None Seen)
[2024-04-19 00:18] VITALS: BP 151/86; PULSE 112; RESP 20; O2SAT 95
== END 2024-04-19 01:45 | disposition left against medical advice (07) ==
LOC: EMS 18:45
DX: J18.9 Pneumonia, unspecified organism (principal); R51.9 Headache, unspecified; R11.0 Nausea; R53.81 Other malaise; I10 Essential (primary) hypertension; E78.00 Pure hypercholesterolemia, unspecified; F20.9 Schizophrenia, unspecified; Z88.0 Allergy status to penicillin; Z88.5 Allergy status to narcotic agent; Z88.6 Allergy status to analgesic agent; Z88.8 Allergy status to other drugs, medicaments and biological substances; Z90.89 Acquired absence of other organs; Z79.899 Other long term (current) drug therapy
CPT/HCPCS: 81001; 87077; 87086; 87186; 93005; 99284; Z7502

== ENCOUNTER 2024-04-21 16:34 | Emergency (ER) | payer MEDICARE, MEDICAID ==
[~2024-04-21] VITALS: Ht 170.2 cm; Wt 105.0 kg
[2024-04-21 16:57] VITALS: TEMP 98.5
[2024-04-21 17:00] VITALS: BP 142/87; PULSE 102; RESP 18; O2SAT 95
[2024-04-21 17:34] LABS: COVID AG,FIA SOURCE NASAL SWAB
[2024-04-21 17:54] LABS: SARS-COV2 (COVID) ANTIGEN,FIA Negative (Negative)
[2024-04-21] MEDS: ACETAMINOPHEN 500 MG TABLET PO ONE (18:55)
[2024-04-21] MEDS ORDERED: ZOLPIDEM TARTRATE 10 MG TABLET PO PRN (20:00)
[2024-04-21] MEDS ORDERED: HALOPERIDOL 5 MG TABLET PO PRN (20:00)
[2024-04-21] MEDS ORDERED: LORazepam 2 MG TABLET PO PRN (20:00)
== END 2024-04-21 23:13 | disposition home or self-care (01) ==
LOC: EMS 16:34
DX: M79.604 Pain in right leg (principal); M79.605 Pain in left leg; R11.2 Nausea with vomiting, unspecified; F31.9 Bipolar disorder, unspecified; I10 Essential (primary) hypertension; E78.00 Pure hypercholesterolemia, unspecified; F20.9 Schizophrenia, unspecified; Z88.0 Allergy status to penicillin; Z88.5 Allergy status to narcotic agent; Z88.6 Allergy status to analgesic agent; Z88.8 Allergy status to other drugs, medicaments and biological substances; Z90.89 Acquired absence of other organs; Z79.899 Other long term (current) drug therapy; Z20.822 Contact with and (suspected) exposure to COVID-19
CPT/HCPCS: 99283

== ENCOUNTER 2024-05-12 06:06 | Emergency (ER) | payer MEDICARE, MEDICAID ==
[~2024-05-12] VITALS: Ht 170.2 cm; Wt 106.0 kg
[2024-05-12 06:33] VITALS: BP 149/89; PULSE 102; RESP 16; TEMP 96.4; O2SAT 100
[2024-05-12] MEDS: ACETAMINOPHEN 500 MG TABLET PO ONE (06:46)
[2024-05-12 07:21] LABS: BASOPHILS % (AUTO) 0.5 % (0.0-2.0); EOSINOPHILS % (AUTO) 0.8 % (1.0-6.0); HEMATOCRIT 38.9 % (36-46); HEMOGLOBIN 12.9 g/dL (12.0-16.0); LYMPHOCYTES # (AUTO) 1.2 K/uL (1.0-4.8); LYMPHOCYTES % (AUTO) 19.8 % (22.0-44.0); MEAN CORPUSCULAR HEMOGLOBIN 29.3 pg (26.0-34.0); MEAN CORPUSCULAR HGB CONC 33.1 G/dL (31.0-37.0); MEAN CORPUSCULAR VOLUME 89 fL (80-100); MONOCYTES # (AUTO) 0.5 K/uL (0.1-1.0); MONOCYTES % (AUTO) 9.1 % (2.0-9.0); NEUTROPHILS # (AUTO) 4.1 K/uL (1.8-7.7); NEUTROPHILS % (AUTO) 69.8 % (40.0-70.0); PLATELET COUNT (AUTO) 370 K/uL (150-450); RED BLOOD CELL COUNT(AUTO) 4.39 MIL/uL (4.00-5.20); RED CELL DISTRIBUTION WIDTH 15.8 % (11.5-14.5); WHITE BLOOD COUNT (AUTO) 5.8 K/uL (4.5-11.0)
[2024-05-12 07:30] LABS: ANION GAP 5 mmol/L (8-16); CALCIUM, TOTAL 10.5 mg/dL (8.8-10.5); CARBON DIOXIDE 27 mmol/L (22-29); CHLORIDE 99 mmol/L (98-107); CREATININE 0.77 mg/dL (0.60-1.30); GLOMERULAR FILTR. RATE CALC > 60 mL/min (>60); GLUCOSE,RANDOM 92 mg/dL (70-110); POTASSIUM 3.7 mmol/L (3.5-5.1); SODIUM SERUM 130 mmol/L (136-145); UREA NITROGEN, BLOOD 30 mg/dL (7-18)
[2024-05-12 07:34] LABS: TROPONIN I-HIGH SENSITIVITY 11 ng/L (<51)
[2024-05-12 07:35] LABS: ALBUMIN 2.9 g/dL (3.4-5.0); BILIRUBIN,DIRECT 0.1 mg/dL (0.00-0.20); BILIRUBIN,TOTAL 0.4 mg/dL (0.1-1.0); TOTAL PROTEIN, SERUM 8.3 g/dL (6.4-8.2)
== END 2024-05-12 09:15 | disposition left against medical advice (07) ==
LOC: EMS 06:07
DX: R07.89 Other chest pain (principal); F31.9 Bipolar disorder, unspecified; E78.00 Pure hypercholesterolemia, unspecified; I10 Essential (primary) hypertension; F17.210 Nicotine dependence, cigarettes, uncomplicated; F20.9 Schizophrenia, unspecified; Z79.899 Other long term (current) drug therapy; Z88.0 Allergy status to penicillin; Z88.5 Allergy status to narcotic agent; Z88.6 Allergy status to analgesic agent; Z88.8 Allergy status to other drugs, medicaments and biological substances; Z90.89 Acquired absence of other organs
CPT/HCPCS: 71045; 80048; 80076; 83880; 84484; 85025; 93005; 99285; 36415-L1; 36415-TC

== ENCOUNTER 2024-05-16 20:45 | Emergency (ER) | payer MEDICARE, MEDICAID ==
[~2024-05-16] VITALS: Ht 162.6 cm; Wt 75.0 kg
[2024-05-16 20:50] VITALS: BP 126/72; PULSE 90; RESP 18; TEMP 97.2; O2SAT 98
[2024-05-16 23:04] LABS: COVID AG,FIA SOURCE NASAL SWAB
[2024-05-16 23:30] LABS: INFLUENZA TYPE A NEGATIVE FOR TYPE A (NEGATIVE); INFLUENZA TYPE B NEGATIVE FOR TYPE B (NEGATIVE); SARS-COV2 (COVID) ANTIGEN,FIA Negative (Negative)
[2024-05-16] MEDS ORDERED: ACET-66 PO (23:43)
[2024-05-16] MEDS: ACETAMINOPHEN 325 MG TABLET PO ONE (23:46)
== END 2024-05-17 00:10 | disposition home or self-care (01) ==
LOC: EMS 20:45
DX: M79.10 Myalgia, unspecified site (principal); I10 Essential (primary) hypertension; E78.00 Pure hypercholesterolemia, unspecified; F20.9 Schizophrenia, unspecified; F31.9 Bipolar disorder, unspecified; Z88.0 Allergy status to penicillin; Z88.5 Allergy status to narcotic agent; Z88.6 Allergy status to analgesic agent; Z88.8 Allergy status to other drugs, medicaments and biological substances; Z90.89 Acquired absence of other organs; Z79.899 Other long term (current) drug therapy; Z20.822 Contact with and (suspected) exposure to COVID-19
CPT/HCPCS: 87804; 99283

== ENCOUNTER 2024-05-20 17:47 | Emergency (ER) | payer MEDICARE, MEDICAID ==
[~2024-05-20] VITALS: Ht 170.2 cm; Wt 97.7 kg
[~2024-05-20 17:47] MED LIST changes: +ACET-66 PO
[2024-05-20 18:41] VITALS: BP 128/86; PULSE 93; RESP 18; TEMP 99; O2SAT 98
[2024-05-20] MEDS: ACETAMINOPHEN 500 MG TABLET PO ONE (19:00)
[2024-05-20] MEDS: IBUPROFEN 600 MG TABLET PO ONE (19:00)
== END 2024-05-20 19:36 | disposition home or self-care (01) ==
LOC: EMS 17:47
DX: G89.29 Other chronic pain (principal); M79.605 Pain in left leg; I10 Essential (primary) hypertension; E78.00 Pure hypercholesterolemia, unspecified; F20.9 Schizophrenia, unspecified; F17.210 Nicotine dependence, cigarettes, uncomplicated; Z88.0 Allergy status to penicillin; Z88.5 Allergy status to narcotic agent; Z88.6 Allergy status to analgesic agent; Z88.8 Allergy status to other drugs, medicaments and biological substances; Z90.89 Acquired absence of other organs; Z79.899 Other long term (current) drug therapy
CPT/HCPCS: 99283